=== PATIENT | female | born 1935 | race Caucasian/White ===

== ENCOUNTER 2016-10-26 21:35 | Inpatient (IN) | payer MEDICARE, OTHER ==
[~2016-10-26] VITALS: Ht 162.6 cm; Wt 115.2 kg
[~2016-10-26 21:35] MED LIST: ACET325T9 PO; ACET500T33 PO; ALPR0.25 PO; ANTIFUNGAL POWDER TOP; ASPI-482 PO; ATOR20TA PO; BALS60OI TP; CETI10CA PO; DILT240C2 PO; DILT300C4 PO; DOCU100C28 PO; ESTR2TAB4 PO; FLUT16SP2 NS; FOLI1CAP10 PO; FURO80TA72 PO; GABA-585 PO; HYDR-2758 PO; HYDR-2762 PO; HYDR28.423 TP; IBUP-1027 PO; LEVO5TAB29 PO; LIDO35.4 TP; LIDOCAINE HCL 2% TOP; LOSA100T2 PO; MELA1TAB13 PO; METO-269 PO; METO100T11 PO; METO2.5T PO; METO25TA9 PO; MULT-245 PO; ONDA8TAB12 PO; POLY17PO29 PO; POTA20PA21 PO; PRAS10TA9 PO; RIVA15TA PO; SENN-37 PO; SENN8.6T99 PO; TORS5TAB3 PO; TRAM-48 PO; [UNRECOGNIZED DRUG - CODE] TP; [UNRECOGNIZED DRUG - CODE] TP; testosterone cream TP
[2016-10-26 22:42] LABS: BASO # 0.1 x10^3/uL (0.0-0.2); BASO % 1 % (0-3); EOS % 1 % (0-3); HEMOGLOBIN 13.9 g/dL (12.0-15.5); LYMPH # 1.7 x10^3/uL (1.0-4.8); LYMPH % 18 % (24-48); MEAN CORPUSCULAR HEMOGLOBIN 33 pg (25-35); MEAN CORPUSCULAR HGB CONC 33 g/dL (31-37); MEAN CORPUSCULAR VOLUME 101 fL (79-100); MONO % 10 % (0-9); NEUT % 71 % (31-73); PLATELET COUNT 224 x10^3/uL (140-400); RED BLOOD COUNT 4.18 x10^6/uL (3.50-5.40); RED CELL DISTRIBUTION WIDTH 14.8 % (11.5-14.5); WHITE BLOOD COUNT 9.5 x10^3/uL (4.0-11.0)
[2016-10-26 23:01] LABS: CALCIUM 9.3 mg/dL (8.5-10.1); CREATININE 1.7 mg/dL (0.6-1.0); GFR 28.7; POTASSIUM 4.2 mmol/L (3.5-5.1)
[2016-10-26 23:07] LABS: ALBUMIN 3.4 g/dL (3.4-5.0); DIRECT BILIRUBIN 0.4 mg/dL (0.0-0.2); TOTAL BILIRUBIN 0.8 mg/dL (0.2-1.0); TOTAL PROTEIN 6.8 g/dL (6.4-8.2)
--- NOTE | 2016-10-26 23:18 | RAD ---
INDICATION: intermittant confusion, prior sent COMPARISON: July 02, 2015 TECHNIQUE: Axial CT images obtained through the head without intravenous contrast. One or more of the following individualized dose reduction techniques were utilized for this examination: 1. Automated exposure control; 2. Adjustment of the mA and/or kV according to patient size; 3. Use of iterative reconstruction technique. FINDINGS: No intracranial hemorrhage. No midline shift. Basal cisterns patents. Ventricles and sulci are globally prominent. No acute osseous abnormality. Orbits and paranasal sinuses unremarkable. Scattered foci of low attenuation within the white matter. IMPRESSION: 1. No acute intracranial hemorrhage. 2. Scattered regions of low attenuation within the white matter. Non-specific in nature but frequently secondary to chronic small vessel ischemic disease. 3. Prominence of ventricles and sulci which is frequently secondary to age related volume loss. 4. Repeat demonstration of low-attenuation the right side of the cerebellum which could be from patient's prior infarct. There has also been interval development of low-attenuation in the left side of the cerebellum which could be secondary to a region of gliosis or edema. Possible that this is related to the prior infarct but this region does appear new when compared to prior therefore could be subacute or chronic in nature. If further information is desired MRI can further evaluate Electronically signed by: Hardy Wagner MD (10/26/2016 11:15 PM) [facility]
[2016-10-27] VITALS (7 sets, daily range): BP systolic 102–132; BP diastolic 57–79
[2016-10-27 00:06] LABS: BILIRUBIN,URINE NEGATIVE (NEG); GLUCOSE,URINE NEGATIVE (NEG); NITRITE,URINE POSITIVE (NEG); PROTEIN,URINE NEGATIVE (NEG-TRACE)
[2016-10-27 00:15] LABS: BACTERIA,URINE MANY /HPF (0-FEW); RBC,URINE OCC /HPF (0-2); SQUAMOUS EPITHELIAL CELL,UR MOD /LPF; WBC,URINE 20-40 /HPF (0-4)
[2016-10-27] MEDS ORDERED: ONDANSETRON PF 4 MG/2 ML VIAL. IV PRN (00:30)
--- NOTE | 2016-10-27 03:05 | PHYS DOC ---
Past Medical History Past Medical History: A-Fib, CHF, CVA, Hypertension, TIA Additional Past Medical Histor: LYMPHEDEMA,NEUROTIC DISORDER,PVD,RESTLESS LEG SYNDROME,ALLERGIES,PAIN,SOA Past Surgical History: No Surgical History Additional Past Surgical Histo: ABD SURGERY 20 YEARS AGO, INCISION REOPENED 4YRS AGO. CARDIAC STENT Alcohol Use: None Drug Use: None Adult General Chief Complaint Chief Complaint: WEAKNESS/GENERALIZED HPI HPI 81-year-old female presenting to the emergency department today with intermittent confusion over the past 4 days. She reports having hand tremor is been present about 5 or 6 days. It goes away when she it comes back when she rests her hand. She denies any pain. The staff have reported that she has intermittently seemed different. She denies polyuria dysuria chest pain or shortness of breath. Onset today. Location generalized. Duration intermittent. No alleviating or exacerbating factors. Review of systems is negative for chest pain shortness of breath fevers chills nausea vomiting diaphoresis. All other review of systems is negative unless otherwise noted in history of present illness. ED course: 81-year-old female presenting to the emergency room with intermittent confusion over the past few days. Here the patient was afebrile with a normal heart rate. Pertinent physical exam findings were unremarkable. Blood work and urinalysis obtained. Urinary tract infection present. Patient's creatinine was mildly more elevated than previous. She was given IV fluids and antibiotics and then admitted to our hospital for further evaluation workup and care. Nephrology and infectious disease consultation. Review of Systems Review of Systems SEE ABOVE. Allergies Allergies Allergies Coded Allergies Type Severity Reaction Last Updated Verified Penicillins Allergy Intermediate 08/18/13 Yes Sulfa (Sulfonamide Antibiotics) Allergy Intermediate 05/04/15 Yes adhesive tape Allergy Intermediate 05/08/15 Yes cefadroxil Allergy Intermediate 05/04/15 Yes clopidogrel Allergy Intermediate 05/04/15 Yes codeine Allergy Intermediate 05/04/15 Yes morphine Allergy Intermediate 05/04/15 Yes I S O L A T I O N *CONTACT* Allergy Unknown 05/07/15 Yes Physical Exam Physical Exam SEE ABOVE Constitutional: Well developed, well nourished, no acute distress, non-toxic appearance. [] HENT: Normocephalic, atraumatic, bilateral external ears normal, oropharynx moist, no oral exudates, nose normal. [] Eyes: PERRLA, EOMI, conjunctiva normal, no discharge. [] Neck: Normal range of motion, no tenderness, supple, no stridor. [] Cardiovascular:Heart rate regular rhythm, no murmur [] Lungs & Thorax: Bilateral breath sounds clear to auscultation [] Abdomen: Bowel sounds normal, soft, no tenderness, no masses, no pulsatile masses. [] Skin: Warm, dry, no erythema, no rash. [] Back: No tenderness, no CVA tenderness. [] Extremities: No tenderness, no cyanosis, no clubbing, ROM intact, no edema. [] Neurologic: Alert and oriented X 3, normal motor function, normal sensory function, no focal deficits noted. [] Psychologic: Affect normal, judgement normal, mood normal. [] Current Patient Data Vital Signs Vital Signs Date Time Temp Pulse Resp B/P (MAP) Pulse Ox O2 Delivery O2 Flow Rate FiO2 10/26/16 23:56 100 143/72 (95) 95 Nasal Cannula 2.0 10/26/16 21:40 98.1 20 98.1 Lab Values Laboratory Tests Test 10/26/16 22:30 10/26/16 23:59 White Blood Count 9.5 x10^3/uL (4.0-11.0) Red Blood Count 4.18 x10^6/uL (3.50-5.40) Hemoglobin 13.9 g/dL (12.0-15.5) Hematocrit 42.0 % (36.0-47.0) Mean Corpuscular Volume 101 fL (79-100) H Mean Corpuscular Hemoglobin 33 pg (25-35) Mean Corpuscular Hemoglobin Concent 33 g/dL (31-37) Red Cell Distribution Width 14.8 % (11.5-14.5) H Platelet Count 224 x10^3/uL (140-400) Neutrophils (%) (Auto) 71 % (31-73) Lymphocytes (%) (Auto) 18 % (24-48) L Monocytes (%) (Auto) 10 % (0-9) H Eosinophils (%) (Auto) 1 % (0-3) Basophils (%) (Auto) 1 % (0-3) Neutrophils # (Auto) 6.7 x10^3uL (1.8-7.7) Lymphocytes # (Auto) 1.7 x10^3/uL (1.0-4.8) Monocytes # (Auto) 0.9 x10^3/uL (0.0-1.1) Eosinophils # (Auto) 0.0 x10^3/uL (0.0-0.7) Basophils # (Auto) 0.1 x10^3/uL (0.0-0.2) Sodium Level 145 mmol/L (136-145) Potassium Level 4.2 mmol/L (3.5-5.1) Chloride Level 105 mmol/L (98-107) Carbon Dioxide Level 30 mmol/L (21-32) Anion Gap 10 (6-14) Blood Urea Nitrogen 48 mg/dL (7-20) H Creatinine 1.7 mg/dL (0.6-1.0) H Estimated GFR (Cockcroft-Gault) 28.7 Glucose Level 126 mg/dL (70-99) H Lactic Acid Level 1.3 mmol/L (0.4-2.0) Calcium Level 9.3 mg/dL (8.5-10.1) Total Bilirubin 0.8 mg/dL (0.2-1.0) Direct Bilirubin 0.4 mg/dL (0.0-0.2) H Aspartate Amino Transferase (AST) 25 U/L (15-37) Alanine Aminotransferase (ALT) 32 U/L (14-59) Alkaline Phosphatase 92 U/L (46-116) Troponin I Quantitative 0.037 ng/mL (0.000-0.055) QP-Dwk-R-Type Natriuretic Peptide 2992 pg/mL (0-449) H Total Protein 6.8 g/dL (6.4-8.2) Albumin 3.4 g/dL (3.4-5.0) Lipase 386 U/L (73-393) Urine Collection Type U cath Urine Color Yellow Urine Clarity Clear Urine pH 6.0 Urine Specific [place] 1.015 Urine Protein Negative mg/dL (NEG-TRACE) Urine Glucose (UA) Negative mg/dL (NEG) Urine Ketones (Stick) Negative mg/dL (NEG) Urine Blood Negative (NEG) Urine Nitrite Positive (NEG) Urine Bilirubin Negative (NEG) Urine Urobilinogen Dipstick 1.0 mg/dL (0.2 mg/dL) Urine Leukocyte Esterase Moderate (NEG) Urine RBC Occ /HPF (0-2) Urine WBC 20-40 /HPF (0-4) Urine Squamous Epithelial Cells Mod /LPF Urine Bacteria Many /HPF (0-FEW) Urine Hyaline Casts Few /HPF Urine Mucus Slight /LPF Laboratory Tests 10/26/16 22:30 Laboratory Tests 10/26/16 22:30 EKG EKG [] Radiology/Procedures Radiology/Procedures [] Course & Med Decision Making Course & Med Decision Making Pertinent Labs and Imaging studies reviewed. (See chart for details) [] Dragon Disclaimer Dragon Disclaimer This electronic medical record was generated, in whole or in part, using a voice recognition dictation system. Departure Departure Impression: Primary Impression: Urinary tract infection Additional Impression: Acute kidney injury Disposition: ADMITTED INPATIENT Admitting Physician: Naeem Lopez Condition: IMPROVED Referrals: NOEMÍ MCKEE MD (PCP) Problem Qualifiers VIELKA JAMESON MD Oct 27, 2016 03:05
[2016-10-27] MEDS ORDERED: LIDO MAALOX BENADRYL PO (05:40)
[2016-10-27] MEDS ORDERED: [UNRECOGNIZED DRUG - OTHER] (05:40)
[2016-10-27] MEDS ORDERED: ALBU2.5V14 NEB (05:40)
[2016-10-27] MEDS ORDERED: SPIR25TA3 PO (05:40)
[2016-10-27] MEDS ORDERED: FAMO20TA5 PO (05:40)
[2016-10-27] MEDS ORDERED: magic mouthwash (05:40)
[2016-10-27] MEDS ORDERED: MICO45CR3 TOP (05:40)
[2016-10-27] MEDS ORDERED: CLOB15CR TP (05:40)
[2016-10-27] MEDS ORDERED: IPRA0.2S5 NEB (05:40)
[2016-10-27] MEDS ORDERED: POLY17PO3 PO (05:40)
[2016-10-27] MEDS ORDERED: SENN1TAB99 PO (05:40)
[2016-10-27] MEDS ORDERED: ACET500T68 PO (05:40)
[2016-10-27] MEDS ORDERED: GUAI100L12 PO (05:40)
[2016-10-27] MEDS ORDERED: TRIA15OI TP (05:40)
[2016-10-27] MEDS ORDERED: ONDA8TAB12 PO (05:40)
[2016-10-27] MEDS ORDERED: GABA-586 PO (05:40)
[2016-10-27] MEDS ORDERED: MINE114O TP (05:40)
[2016-10-27] MEDS ORDERED: BUME2TAB PO (05:40)
[2016-10-27] MEDS ORDERED: ASPI-171 PO (05:40)
[2016-10-27] MEDS ORDERED: IBUP-1060 PO (05:40)
[2016-10-27] MEDS ORDERED: MAALOX (05:40)
[2016-10-27] MEDS ORDERED: MAG355OR12 PO (05:40)
[2016-10-27] MEDS ORDERED: DOCU100C28 PO (05:40)
[2016-10-27] MEDS ORDERED: LIDOCAINE (05:40)
[2016-10-27] MEDS ORDERED: GABA-587 PO (05:40)
[2016-10-27] MEDS ORDERED: LISI-338 PO (05:40)
[2016-10-27] MEDS ORDERED: SERT50TA PO (05:40)
--- NOTE | 2016-10-27 06:12 | EKG ---
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
[2016-10-27] MEDS ORDERED: BALSAM PERU TP SCH (08:00)
[2016-10-27] MEDS ORDERED: IPRATROPIUM BROMIDE 0.5 MG/2.5 ML NEBU. NEB PRN (08:00)
[2016-10-27] MEDS ORDERED: MAG HYDROX/ALUMINUM HYD/SIMETH 30 ML ORAL.SUSP PO PRN (08:00)
[2016-10-27] MEDS ORDERED: POLYETHYLENE GLYCOL 3350 17 GM PACKET. PO PRN (08:00)
[2016-10-27] MEDS ORDERED: CASTOR OIL TP SCH (08:00)
--- NOTE | 2016-10-27 08:22 | PDOC1 ---
History and Physical Date of Admission Date of Admission DATE: 10/27/16 TIME: 08:17 Identification/Chief Complaint Chief Complaint confusion Problems: Source Source: Chart review, Patient History of Present Illness History of Present Illness Sister Thursday is an 81-year-old female admit from ER for intermittent confusion , weakness and tremor. Symptoms worse over days, she lives in the mother house, and has mult medical poblems to manage, She wanted to talk repeatedly that she was so confused she had a problem, because she has no pain, she reports 5 siblings, and 2 others are also currently sick, but live out of town. poor PO intake, and new rash on her arms from tape Past Medical History Cardiovascular: AFIB, CAD, CHF, HTN, Hyperlipidemia, Other Pulmonary: No pertinent hx CENTRAL NERVOUS SYSTEM: CVA GI: Constipation, Peptic Ulcer disease Heme/Onc: Cancer Musculoskeletal: Osteoarthritis Infectious disease: No pertinent hx Renal/: Chronic renal insuff, UTI Endocrine: Diabetes Past Surgical History Past Surgical History: Appendectomy, Cataract Removal, Total knee replacement, Tonsillectomy, Hysterectomy, Other Family History Family History: Coronary Artery Disease, Obesity, Stroke (sister) Family History: Parent, Other Social History Smoke: No ALCOHOL: none Drugs: None Current Problem List Problem List Problems Medical Problems: (1) Acute kidney injury Status: Acute (2) Urinary tract infection Status: Acute Problems: Current Medications Current Medications Current Medications Ondansetron HCl (Zofran) 4 mg PRN Q8HRS PRN IV NAUSEA/VOMITING; Start 10/27/16 at 00:30; Stop 10/28/16 at 00:29 Levofloxacin/ Dextrose 100 ml @ 100 mls/hr 1X ONCE IV Last administered on t 00:55; Start 10/27/16 at 01:00; Stop 10/27/16 at 01:59; Status DC Active Scripts Active Reported [lido:maalox:benadryl] PO PRN Q6HRS PRN Bumetanide 2 Mg Tablet 1 Tab PO BID Maalox Maximum Strength Susp (Mag Hydrox/Al Hydrox/Simeth) 355 Ml Oral.susp 355 Ml PO PRN PRN Clobetasol Propionate 15 Gm Cream..g. 1 Kali TP BID Ibuprofen 800 Mg Tablet 800 Mg PO PRN Q8HRS PRN Guaifenesin 100 Mg/5 Ml Liquid 100 Mg PO PRN Q6HRS PRN Spironolactone 25 Mg Tablet 25 Mg PO DAILY Lisinopril 5 Mg Tablet 5 Mg PO HS Polyethylene Glycol 3350 17 Gm Powd.pack 17 Gm PO QODAY Ipratropium [place] 0.2 Mg/1 Ml Solution 1 Vial NEB PRN QID PRN Triamcinolone Acetonide 0.1% Oint (Triamcinolone Acetonide) 15 Gm Oint...g. 1 Kali TP TID MIX WITH EUCERIN DIRECTED BY PHYSICIAN Gabapentin 300 Mg Capsule 300 Mg PO BID Zoloft (Sertraline Hcl) 50 Mg Tablet 50 Mg PO DAILY Absorbase Ointment (Mineral Oil/Petrolatum,White) 114 Gm Oint...g. 114 Gm TP PRN BID PRN Miconazole Nitrate 45 Gm Cream.appl 45 Gm TOP PRN DAILY Famotidine 20 Mg Tablet 20 Mg PO DAILY Albuterol Sulfate Conc Neb Soln (Albuterol Sulfate) 2.5 Mg/0.5 Ml Vial.neb 1 Vial NEB Q6HRS Senna-Docusate Sodium Tablet (Sennosides/Docusate Sodium) 1 Each Tablet 1 Each PO QODAY Zofran Odt (Ondansetron) 8 Mg Tab.rapdis 8 Mg PO PRN Q8HRS PRN Gabapentin 400 Mg Capsule 400 Mg PO HS Acetaminophen 500 Mg Tablet 500 Mg PO Q6HRS Docusate Sodium 100 Mg Capsule 1 Cap PO DAILY Lo-Dose Aspirin EC (Aspirin) 81 Mg Tablet.dr 81 Mg PO DAILY Venelex Ointment (Balsam [place]ang Oil) 60 Gm Oint...g. 60 Gm TP QSHIFT Estrace (Estradiol) 2 Mg Tablet 1 Ad PO JUNE,SEPTEMBER,DEC,DEC Xanax (Alprazolam) 0.25 Mg Tablet 1 Tab PO BID Metoprolol Succinate ( Xl ) (Metoprolol Succinate) 100 Mg Tab.er.24h 100 Mg PO DAILY Flonase (Fluticasone Propionate) 16 Gm [place].susp 1 Sprays NS DAILY Miralax (Polyethylene Glycol 3350) 17 Gm Powd.pack 17 Gm PO PRN DAILY PRN Potassium Chloride Packet (Potassium Chloride) 20 Meq Packet 40 Meq PO QID Allergies Allergies: Coded Allergies: Penicillins (Verified Allergy, Intermediate, 08/18/13) Sulfa (Sulfonamide Antibiotics) (Verified Allergy, Intermediate, 05/04/15) adhesive tape (Verified Allergy, Intermediate, 05/08/15) cefadroxil (Verified Allergy, Intermediate, 05/04/15) clopidogrel (Verified Allergy, Intermediate, 05/04/15) codeine (Verified Allergy, Intermediate, 05/04/15) morphine (Verified Allergy, Intermediate, 05/04/15) I S O L A T I O N *CONTACT* (Verified Allergy, Unknown, 05/07/15) mrsa + ROS Review of System Review of systems is negative for chest pain shortness of breath fevers chills nausea vomiting diaphoresis. All other review of systems is negative unless otherwise noted in history of present illness. General: YES: Fatigue, Appetite, No: Chills, Night Sweats, Malaise, Other PSYCHOLOGICAL ROS: No: Anxiety, Behavioral Disorder, Concentration difficultie , Decreased libido, Depression, Disorientation, Hallucinations, Hostility, Irritablity, Memory difficulties, Mood Swings, Obsessive thoughts, Physical abuse, Sexual abuse, Sleep disturbances, Suicidal ideation, Other Eyes: No Blurry vision, No Decreased vision, No Double vision, No Dry eyes, No Excessive tearing, No Eye Pain, No Itchy Eyes, No Loss of vision, No Photophobia , No Scotomata, No Uses contacts, No Uses glasses, No Other HEENT: No: Heacaches, Visual Changes, Hearing change, Nasal congestion, Nasal discharge, Oral lesions, Sinus pain, Sore Throat, Epistaxis, Sneezing, Snoring, Tinnitus, Vertigo, Vocal changes, Other Respiratory: No: Cough, Hemoptysis, Orthopnea, Pleuritic Pain, Shortness of breath, SOB with excertion, Sputum Changes, Stridor, Tachypnea, Wheezing, Other Cardiovascular: No Chest Pain, No Palpitations, No Orthopnea, No Paroxysmal Noc. Dyspnea, No Edema, No Lt Headedness, No Other Gastrointestinal: No Nausea, No Vomiting, No Abdominal Pain, No Diarrhea, No Constipation, No Melena, No Hematochezia, No Other Genitourinary: YES Frequency, No Dysuria, No Incontinence, No Hematuria, No Retention, No Discharge, No Urgency, No Pain, No Flank Pain, No Other, No , No , No , No , No , No , No Musculoskeletal: No Gait Disturbance, No Joint Pain, No Joint Stiffness, No Joint Swelling, No Muscle Pain, No Muscular Weakness, No Pain In:, No Swelling In:, No Other Neurological: Yes Confusion, Yes Gait Disturbance, No Behavorial Changes, No Bowel/Bladder ControlChng, No Dizziness, No Headaches, No Impaired Coord/balance, No Memory Loss, No Numbness/Tingling, No Seizures, No Speech Problems, No Tremors, No Visual Changes, No Weakness, No Other Skin: No Dry Skin, No Eczema, No Hair Changes, No Lumps, No Mole Changes, No Mottling, No Nail Changes, No Pruritus, No Rash, No Skin Lesion Changes, No Other, No Acne Physical Exam General: Alert, Cooperative, No acute distress, Other (not oriented this AM) HEENT: PERRLA, EOMI, Other (dry OP) Lungs: Clear to auscultation, Normal air movement Heart: no thrills Abdomen: Normal bowel sounds, Soft (obese) Rectal Exam: not examined Extremities: No clubbing, No cyanosis Skin: Other (erythema bilat LE, blanchable, ) Neuro: Normal speech, Sensation intact, Cranial nerves 3-12 NL Psych/Mental Status: Mental status NL, Mood NL Vitals Vitals Vital Signs Date Time Temp Pulse Resp B/P (MAP) Pulse Ox O2 Delivery O2 Flow Rate FiO2 10/27/16 07:00 97.9 83 18 132/79 (96) 99 Nasal Cannula 2.0 97.9 Labs Labs Laboratory Tests Test 10/26/16 22:30 10/26/16 23:59 White Blood Count 9.5 x10^3/uL (4.0-11.0) Red Blood Count 4.18 x10^6/uL (3.50-5.40) Hemoglobin 13.9 g/dL (12.0-15.5) Hematocrit 42.0 % (36.0-47.0) Mean Corpuscular Volume 101 fL (79-100) Mean Corpuscular Hemoglobin 33 pg (25-35) Mean Corpuscular Hemoglobin Concent 33 g/dL (31-37) Red Cell Distribution Width 14.8 % (11.5-14.5) Platelet Count 224 x10^3/uL (140-400) Neutrophils (%) (Auto) 71 % (31-73) Lymphocytes (%) (Auto) 18 % (24-48) Monocytes (%) (Auto) 10 % (0-9) Eosinophils (%) (Auto) 1 % (0-3) Basophils (%) (Auto) 1 % (0-3) Neutrophils # (Auto) 6.7 x10^3uL (1.8-7.7) Lymphocytes # (Auto) 1.7 x10^3/uL (1.0-4.8) Monocytes # (Auto) 0.9 x10^3/uL (0.0-1.1) Eosinophils # (Auto) 0.0 x10^3/uL (0.0-0.7) Basophils # (Auto) 0.1 x10^3/uL (0.0-0.2) Sodium Level 145 mmol/L (136-145) Potassium Level 4.2 mmol/L (3.5-5.1) Chloride Level 105 mmol/L (98-107) Carbon Dioxide Level 30 mmol/L (21-32) Anion Gap 10 (6-14) Blood Urea Nitrogen 48 mg/dL (7-20) Creatinine 1.7 mg/dL (0.6-1.0) Estimated GFR (Cockcroft-Gault) 28.7 Glucose Level 126 mg/dL (70-99) Lactic Acid Level 1.3 mmol/L (0.4-2.0) Calcium Level 9.3 mg/dL (8.5-10.1) Total Bilirubin 0.8 mg/dL (0.2-1.0) Direct Bilirubin 0.4 mg/dL (0.0-0.2) Aspartate Amino Transf (AST/SGOT) 25 U/L (15-37) Alanine Aminotransferase (ALT/SGPT) 32 U/L (14-59) Alkaline Phosphatase 92 U/L (46-116) Troponin I Quantitative 0.037 ng/mL (0.000-0.055) OZ-Lic-N-Type Natriuretic Peptide 2992 pg/mL (0-449) Total Protein 6.8 g/dL (6.4-8.2) Albumin 3.4 g/dL (3.4-5.0) Lipase 386 U/L (73-393) Urine Collection Type U cath Urine Color Yellow Urine Clarity Clear Urine pH 6.0 Urine Specific [place] 1.015 Urine Protein Negative mg/dL (NEG-TRACE) Urine Glucose (UA) Negative mg/dL (NEG) Urine Ketones (Stick) Negative mg/dL (NEG) Urine Blood Negative (NEG) Urine Nitrite Positive (NEG) Urine Bilirubin Negative (NEG) Urine Urobilinogen Dipstick 1.0 mg/dL (0.2 mg/dL) Urine Leukocyte Esterase Moderate (NEG) Urine RBC Occ /HPF (0-2) Urine WBC 20-40 /HPF (0-4) Urine Squamous Epithelial Cells Mod /LPF Urine Bacteria Many /HPF (0-FEW) Urine Hyaline Casts Few /HPF Urine Mucus Slight /LPF Laboratory Tests Test 10/26/16 22:30 10/26/16 23:59 White Blood Count 9.5 x10^3/uL (4.0-11.0) Red Blood Count 4.18 x10^6/uL (3.50-5.40) Hemoglobin 13.9 g/dL (12.0-15.5) Hematocrit 42.0 % (36.0-47.0) Mean Corpuscular Volume 101 fL (79-100) Mean Corpuscular Hemoglobin 33 pg (25-35) Mean Corpuscular Hemoglobin Concent 33 g/dL (31-37) Red Cell Distribution Width 14.8 % (11.5-14.5) Platelet Count 224 x10^3/uL (140-400) Neutrophils (%) (Auto) 71 % (31-73) Lymphocytes (%) (Auto) 18 % (24-48) Monocytes (%) (Auto) 10 % (0-9) Eosinophils (%) (Auto) 1 % (0-3) Basophils (%) (Auto) 1 % (0-3) Neutrophils # (Auto) 6.7 x10^3uL (1.8-7.7) Lymphocytes # (Auto) 1.7 x10^3/uL (1.0-4.8) Monocytes # (Auto) 0.9 x10^3/uL (0.0-1.1) Eosinophils # (Auto) 0.0 x10^3/uL (0.0-0.7) Basophils # (Auto) 0.1 x10^3/uL (0.0-0.2) Sodium Level 145 mmol/L (136-145) Potassium Level 4.2 mmol/L (3.5-5.1) Chloride Level 105 mmol/L (98-107) Carbon Dioxide Level 30 mmol/L (21-32) Anion Gap 10 (6-14) Blood Urea Nitrogen 48 mg/dL (7-20) Creatinine 1.7 mg/dL (0.6-1.0) Estimated GFR (Cockcroft-Gault) 28.7 Glucose Level 126 mg/dL (70-99) Lactic Acid Level 1.3 mmol/L (0.4-2.0) Calcium Level 9.3 mg/dL (8.5-10.1) Total Bilirubin 0.8 mg/dL (0.2-1.0) Direct Bilirubin 0.4 mg/dL (0.0-0.2) Aspartate Amino Transf (AST/SGOT) 25 U/L (15-37) Alanine Aminotransferase (ALT/SGPT) 32 U/L (14-59) Alkaline Phosphatase 92 U/L (46-116) Troponin I Quantitative 0.037 ng/mL (0.000-0.055) CC-Rzf-R-Type Natriuretic Peptide 2992 pg/mL (0-449) Total Protein 6.8 g/dL (6.4-8.2) Albumin 3.4 g/dL (3.4-5.0) Lipase 386 U/L (73-393) Urine Collection Type U cath Urine Color Yellow Urine Clarity Clear Urine pH 6.0 Urine Specific [place] 1.015 Urine Protein Negative mg/dL (NEG-TRACE) Urine Glucose (UA) Negative mg/dL (NEG) Urine Ketones (Stick) Negative mg/dL (NEG) Urine Blood Negative (NEG) Urine Nitrite Positive (NEG) Urine Bilirubin Negative (NEG) Urine Urobilinogen Dipstick 1.0 mg/dL (0.2 mg/dL) Urine Leukocyte Esterase Moderate (NEG) Urine RBC Occ /HPF (0-2) Urine WBC 20-40 /HPF (0-4) Urine Squamous Epithelial Cells Mod /LPF Urine Bacteria Many /HPF (0-FEW) Urine Hyaline Casts Few /HPF Urine Mucus Slight /LPF VTE Prophylaxis Ordered VTE Prophylaxis Devices: No VTE Pharmacological Prophylaxi: Yes Assessment/Plan Assessment/Plan metbolic encephalopathy UTI acute renal failure, vasomotor nephropathy morbid obesity, BMI 43 htn, likely chronic diastolic CHF afib, chronic hypoxic respiratory failure HX CVA, CT head possibly shows new area of infarct to cerebellum, consult Neuro admit JABIER MARTINEZ MD Oct 27, 2016 08:22
[2016-10-27] MEDS ORDERED: ONDANSETRON ODT 4 MG TAB.RAPDIS. PO PRN (08:30)
--- NOTE | 2016-10-27 08:31 | RAD ---
Portable chest, 10/26/2016: History: Weakness and fatigue Comparison is made to a study from 05/14/2015. The heart is enlarged. The pulmonary vascularity is normal. There is minimal linear atelectasis and/or scarring in the perihilar regions. No pulmonary consolidation is seen. There is no evidence of pleural fluid. There is a mild thoracic scoliosis with mild scattered spurring. IMPRESSION: 1. Mild cardiomegaly. 2. Minimal bilateral linear atelectasis and/or scarring.
[2016-10-27] MEDS ORDERED: SENNOSIDES/DOCUSATE 8.6/50MG TABLET. PO SCH (09:00)
[2016-10-27] MEDS ORDERED: BUMETANIDE 1 MG TABLET. PO SCH (09:00)
[2016-10-27] MEDS ORDERED: POLYETHYLENE GLYCOL 3350 17 GM PACKET. PO SCH (09:00)
[2016-10-27] MEDS ORDERED: MICONAZOLE NITRATE 2% TOPICAL CREAM 28GM TUBE. TP PRN ×3 (09:00→13:48)
[2016-10-27] MEDS ORDERED: CLOBETASOL EMOLLIENT 0.05% TOPICAL CREAM 15GM TUBE. TP SCH (09:00)
[2016-10-27] MEDS: FAMOTIDINE 20 MG TABLET. PO SCH (09:16)
[2016-10-27] MEDS: SPIRONOLACTONE 25 MG TABLET PO SCH (09:16)
[2016-10-27] MEDS: DOCUSATE SODIUM 100 MG CAPSULE. PO SCH (09:16)
[2016-10-27] MEDS: GABAPENTIN 300 MG CAPSULE. PO SCH ×2 (09:16→13:56)
[2016-10-27] MEDS: ALPRAZolam 0.25 MG TABLET PO SCH ×2 (09:16→20:42)
[2016-10-27] MEDS: SERTRALINE 50 MG TABLET. PO SCH (09:16)
[2016-10-27] MEDS: ASPIRIN ENTERIC COATED 81 MG TABLET.DR. PO SCH (09:17)
[2016-10-27] MEDS: METOPROLOL SUCC 24HR ER 100 MG TAB.ER.24H. PO SCH (09:17)
[2016-10-27] MEDS: IV NORMAL SALINE 1000ML BAG 1,000 ML IV SCH ×2 (09:18→18:15)
[2016-10-27] MEDS: FLUTICASONE 50MCG/NASAL SPRAY 16GM BOTTLE. NS SCH (09:19)
[2016-10-27] MEDS: TRIAMCINOLONE ACETONIDE 0.1% TOPICAL OINTMENT 15GM TUBE. TP SCH ×3 (09:24→20:42)
[2016-10-27] MEDS ORDERED: MINERAL OIL/PETROLATUM TOPICAL CREAM 113GM JAR. TP PRN ×2 (09:45→13:49)
--- NOTE | 2016-10-27 09:56 | PDOC2 ---
IM Consult Reason for consult UTI Referring physician Dr. Barillas Date of Admission DATE: 10/27/16 TIME: 09:49 Chief Complaint Chief Complaint Confusion HPI: Sister Thursday is an 81-year-old female admit from ER for intermittent confusion, weakness and tremor. Symptoms worse over days, she lives in the mother house, and has mult medical poblems to manage, She is better today and complained mainly about urinary hesitation and her lymphedema. States she loses track of her thoughts because of her stroke and also gets SOA with ambulation. She has had some chills but is hungry and had clears today Problems: Past Medical History Cardiovascular: AFIB, CAD, CHF, HTN, Hyperlipidemia, Other Pulmonary: No pertinent hx CENTRAL NERVOUS SYSTEM: CVA GI: Constipation, Peptic Ulcer disease Heme/Onc: Cancer Musculoskeletal: Osteoarthritis Infectious disease: No pertinent hx Renal/: Chronic renal insuff, UTI Endocrine: Diabetes Past Surgical History Past Surgical History: Appendectomy, Cataract Removal, Total knee replacement, Tonsillectomy, Hysterectomy Past Family History Family History: Coronary Artery Disease, Obesity, Stroke (sister) Review of Symptoms Review of Symptoms General ROS: positive for - chills ENT ROS: negative Allergy and Immunology ROS: negative Hematology and Lymphatic: negative Endocrine ROS: negative Respiratory ROS: no cold, cough, dyspnea. Cardiovascular ROS: no chest pain or dyspnea on exertion Gastrointestinal ROS: no abdominal pain, change in bowel habits, or black or bloody stools Genito-Urinary ROS: + retention Musculoskeletal ROS: Lymphedema Neurological ROS: trouble with word finding Dermatological ROS: no rash Medications Current Medications Acetaminophen (Tylenol) 500 mg Q6HRS PO ; Start 10/27/16 at 12:00 Al Hydroxide/Mg Hydroxide (Mylanta Plus Xs) 355 ml PRN Q8HRS PRN PO STOMACH CRAMPING; Start 10/27/16 at 08:00 Albuterol Sulfate (Ventolin Neb Soln) 2.5 mg Q6HRS NEB ; Start 10/27/16 at 12:00 Alprazolam (Xanax) 0.25 mg BID PO Last administered on 10/27/16 09:16; Start 10/27/16 at 09:00 Aspirin (Ecotrin) 81 mg DAILY PO Last administered on 10/27/16 09:17; Start at 09:00 Bumetanide (Bumex) 2 mg BID PO Last administered on 10/27/16 09:16; Start 02/03 at 09:00 Clobetasol Propionate (Temovate) 1 donn BID TP Last administered on 10/27/16 09 :24; Start 10/27/16 at 09:00 Docusate Sodium (Colace) 100 mg DAILY PO Last administered on 10/27/16 09:16; Start 10/27/16 at 09:00 Famotidine (Pepcid) 20 mg DAILY PO Last administered on 10/27/16 09:16; Start 10/27/16 at 09:00 Fluticasone Propionate (Flonase) 1 spray DAILY NS Last administered on 09:19; Start 10/27/16 at 09:00 Gabapentin (Neurontin) 300 mg BID92 PO Last administered on 10/27/16 09:16; Start 10/27/16 at 09:00 Gabapentin (Neurontin) 400 mg QHS PO ; Start 10/27/16 at 21:00 Guaifenesin (Robitussin) 100 mg PRN Q6HRS PRN PO COUGH; Start 10/27/16 at 08:00 Ipratropium [place] (Atrovent) 0.4 mg PRN QID PRN NEB shortness of breath; Start 10/27/16 at 08:00 Levofloxacin/ Dextrose 100 ml @ 100 mls/hr 1X ONCE IV Last administered on 00:55; Start 10/27/16 at 01:00; Stop 10/27/16 at 01:59; Status DC Lisinopril (Prinivil) 5 mg HS PO ; Start 10/27/16 at 21:00 Metoprolol Succinate (Toprol Xl) 100 mg DAILY PO Last administered on 09:17; Start 10/27/16 at 09:00 Miconazole Nitrate (Monistat-Derm) 1 donn DAILY PRN TP Rash; Start 10/27/16 at 09:00 Non-Formulary Medication 1 vial Q6HRS NEB ; Start 10/27/16 at 12:00; Stop at 12:00; Status DC Non-Formulary Medication 60 gm QSHIFT TP ; Start 10/27/16 at 08:00; Status UNV Non-Formulary Medication 114 gm PRN BID PRN TP DRY SKIN / SCALING; Start at 08:00; Status UNV Ondansetron HCl (Zofran Odt) 8 mg PRN Q8HRS PRN PO NAUSEA/VOMITING; Start 10/27 at 08:30 Ondansetron HCl (Zofran) 4 mg PRN Q8HRS PRN IV NAUSEA/VOMITING; Start 10/27/16 at 00:30; Stop 10/28/16 at 00:29 Polyethylene Glycol (miraLAX PACKET) 17 gm PRN DAILY PRN PO CONSTIPATION; Start 10/27/16 at 08:00 Polyethylene Glycol (miraLAX PACKET) 17 gm QODAY PO Last administered on 09:15; Start 10/27/16 at 09:00 Senna/Docusate Sodium (Senna Plus) 1 tab QODAY PO Last administered on 09:16; Start 10/27/16 at 09:00 Sertraline HCl (Zoloft) 50 mg DAILY PO Last administered on 10/27/16 09:16; Start 10/27/16 at 09:00 Sodium Chloride 1,000 ml @ 100 mls/hr Q10H IV Last administered on 10/27/16 09:18; Start 10/27/16 at 08:15 Spironolactone (Aldactone) 25 mg DAILY PO Last administered on 10/27/16 09:16 ; Start 10/27/16 at 09:00 Triamcinolone Acetonide (Kenalog) 1 donn TID TP Last administered on 10/27/16 09:24; Start 10/27/16 at 09:00 Allergy Allergies Coded Allergies Type Severity Reaction Last Updated Verified Penicillins Allergy Intermediate 08/18/13 Yes Sulfa (Sulfonamide Antibiotics) Allergy Intermediate 05/04/15 Yes adhesive tape Allergy Intermediate 05/08/15 Yes cefadroxil Allergy Intermediate 05/04/15 Yes clopidogrel Allergy Intermediate 05/04/15 Yes codeine Allergy Intermediate 05/04/15 Yes morphine Allergy Intermediate 05/04/15 Yes I S O L A T I O N *CONTACT* Allergy Unknown 05/07/15 Yes Physical Exam Physical Exam General appearance - alert,well appearing, and in no distress and oriented to person, place, and time Mental Status - alert, oriented to person, place, and time, affect appropriate to mood Head - normal Chest - clear to auscultation, no wheezes, rales or rhonchi, symmetric air entry Heart - S1 and S2 normal Abdomen - soft, nontender, nondistended, no masses or organomegaly Neurological - alert and oriented Musculoskeletal - no muscular tenderness noted Extremities - no pedal edema Skin - warm and dry Labs Laboratory Tests Test 10/26/16 22:30 10/26/16 23:59 White Blood Count 9.5 x10^3/uL (4.0-11.0) Red Blood Count 4.18 x10^6/uL (3.50-5.40) Hemoglobin 13.9 g/dL (12.0-15.5) Hematocrit 42.0 % (36.0-47.0) Mean Corpuscular Volume 101 fL (79-100) Mean Corpuscular Hemoglobin 33 pg (25-35) Mean Corpuscular Hemoglobin Concent 33 g/dL (31-37) Red Cell Distribution Width 14.8 % (11.5-14.5) Platelet Count 224 x10^3/uL (140-400) Neutrophils (%) (Auto) 71 % (31-73) Lymphocytes (%) (Auto) 18 % (24-48) Monocytes (%) (Auto) 10 % (0-9) Eosinophils (%) (Auto) 1 % (0-3) Basophils (%) (Auto) 1 % (0-3) Neutrophils # (Auto) 6.7 x10^3uL (1.8-7.7) Lymphocytes # (Auto) 1.7 x10^3/uL (1.0-4.8) Monocytes # (Auto) 0.9 x10^3/uL (0.0-1.1) Eosinophils # (Auto) 0.0 x10^3/uL (0.0-0.7) Basophils # (Auto) 0.1 x10^3/uL (0.0-0.2) Sodium Level 145 mmol/L (136-145) Potassium Level 4.2 mmol/L (3.5-5.1) Chloride Level 105 mmol/L (98-107) Carbon Dioxide Level 30 mmol/L (21-32) Anion Gap 10 (6-14) Blood Urea Nitrogen 48 mg/dL (7-20) Creatinine 1.7 mg/dL (0.6-1.0) Estimated GFR (Cockcroft-Gault) 28.7 Glucose Level 126 mg/dL (70-99) Lactic Acid Level 1.3 mmol/L (0.4-2.0) Calcium Level 9.3 mg/dL (8.5-10.1) Total Bilirubin 0.8 mg/dL (0.2-1.0) Direct Bilirubin 0.4 mg/dL (0.0-0.2) Aspartate Amino Transf (AST/SGOT) 25 U/L (15-37) Alanine Aminotransferase (ALT/SGPT) 32 U/L (14-59) Alkaline Phosphatase 92 U/L (46-116) Troponin I Quantitative 0.037 ng/mL (0.000-0.055) NX-Fgy-O-Type Natriuretic Peptide 2992 pg/mL (0-449) Total Protein 6.8 g/dL (6.4-8.2) Albumin 3.4 g/dL (3.4-5.0) Lipase 386 U/L (73-393) Urine Collection Type U cath Urine Color Yellow Urine Clarity Clear Urine pH 6.0 Urine Specific [place] 1.015 Urine Protein Negative mg/dL (NEG-TRACE) Urine Glucose (UA) Negative mg/dL (NEG) Urine Ketones (Stick) Negative mg/dL (NEG) Urine Blood Negative (NEG) Urine Nitrite Positive (NEG) Urine Bilirubin Negative (NEG) Urine Urobilinogen Dipstick 1.0 mg/dL (0.2 mg/dL) Urine Leukocyte Esterase Moderate (NEG) Urine RBC Occ /HPF (0-2) Urine WBC 20-40 /HPF (0-4) Urine Squamous Epithelial Cells Mod /LPF Urine Bacteria Many /HPF (0-FEW) Urine Hyaline Casts Few /HPF Urine Mucus Slight /LPF Laboratory Tests Test 10/26/16 22:30 10/26/16 23:59 White Blood Count 9.5 x10^3/uL (4.0-11.0) Red Blood Count 4.18 x10^6/uL (3.50-5.40) Hemoglobin 13.9 g/dL (12.0-15.5) Hematocrit 42.0 % (36.0-47.0) Mean Corpuscular Volume 101 fL (79-100) Mean Corpuscular Hemoglobin 33 pg (25-35) Mean Corpuscular Hemoglobin Concent 33 g/dL (31-37) Red Cell Distribution Width 14.8 % (11.5-14.5) Platelet Count 224 x10^3/uL (140-400) Neutrophils (%) (Auto) 71 % (31-73) Lymphocytes (%) (Auto) 18 % (24-48) Monocytes (%) (Auto) 10 % (0-9) Eosinophils (%) (Auto) 1 % (0-3) Basophils (%) (Auto) 1 % (0-3) Neutrophils # (Auto) 6.7 x10^3uL (1.8-7.7) Lymphocytes # (Auto) 1.7 x10^3/uL (1.0-4.8) Monocytes # (Auto) 0.9 x10^3/uL (0.0-1.1) Eosinophils # (Auto) 0.0 x10^3/uL (0.0-0.7) Basophils # (Auto) 0.1 x10^3/uL (0.0-0.2) Sodium Level 145 mmol/L (136-145) Potassium Level 4.2 mmol/L (3.5-5.1) Chloride Level 105 mmol/L (98-107) Carbon Dioxide Level 30 mmol/L (21-32) Anion Gap 10 (6-14) Blood Urea Nitrogen 48 mg/dL (7-20) Creatinine 1.7 mg/dL (0.6-1.0) Estimated GFR (Cockcroft-Gault) 28.7 Glucose Level 126 mg/dL (70-99) Lactic Acid Level 1.3 mmol/L (0.4-2.0) Calcium Level 9.3 mg/dL (8.5-10.1) Total Bilirubin 0.8 mg/dL (0.2-1.0) Direct Bilirubin 0.4 mg/dL (0.0-0.2) Aspartate Amino Transf (AST/SGOT) 25 U/L (15-37) Alanine Aminotransferase (ALT/SGPT) 32 U/L (14-59) Alkaline Phosphatase 92 U/L (46-116) Troponin I Quantitative 0.037 ng/mL (0.000-0.055) KA-Cdj-I-Type Natriuretic Peptide 2992 pg/mL (0-449) Total Protein 6.8 g/dL (6.4-8.2) Albumin 3.4 g/dL (3.4-5.0) Lipase 386 U/L (73-393) Urine Collection Type U cath Urine Color Yellow Urine Clarity Clear Urine pH 6.0 Urine Specific [place] 1.015 Urine Protein Negative mg/dL (NEG-TRACE) Urine Glucose (UA) Negative mg/dL (NEG) Urine Ketones (Stick) Negative mg/dL (NEG) Urine Blood Negative (NEG) Urine Nitrite Positive (NEG) Urine Bilirubin Negative (NEG) Urine Urobilinogen Dipstick 1.0 mg/dL (0.2 mg/dL) Urine Leukocyte Esterase Moderate (NEG) Urine RBC Occ /HPF (0-2) Urine WBC 20-40 /HPF (0-4) Urine Squamous Epithelial Cells Mod /LPF Urine Bacteria Many /HPF (0-FEW) Urine Hyaline Casts Few /HPF Urine Mucus Slight /LPF Vitals Vital Signs Date Time Temp Pulse Resp B/P (MAP) Pulse Ox O2 Delivery O2 Flow Rate FiO2 10/27/16 09:17 83 132/79 10/27/16 07:00 97.9 18 99 Nasal Cannula 2.0 97.9 Assessment Assessment UTI - POA PCN/Sulfa allergy ? reaction H/o CVA - ? new finding on CT head KIRTI Chronic Lymphedema Plan Plan Clinically improving Cont levofloxacin for now lymphedema eval Neuro consulted F/u labs and cult D/w ERICKA Costa MD Oct 27, 2016 09:55
[2016-10-27] MEDS ORDERED: NON FORMULARY ITEM (Albuterol Sulfate (Albuterol Sulfate Conc Neb Soln) 1 VIAL) NEB SCH (12:00)
[2016-10-27] MEDS: ACETAMINOPHEN 500 MG TABLET PO SCH ×2 (12:00→18:19)
--- NOTE | 2016-10-27 12:13 | PDOC2 ---
CONSULT Date of Consult Date of Consult DATE: 10/27/16 TIME: 12:08 Reason for Consult Reason for Consult: KIRTI Referring Physician Referring Physician: JEFF Identification/Chief Complaint Chief Complaint CONFUSION AND WEAK Problems: Source Source: Chart review History of Present Illness Reason for Visit: THIS IS AN 81 YR OLD ADMITTED WITH CONFUSION AND WEAKNESS. SHE IS NOTED TO HAVE AN UTI. SHE HAS A CR OF 1.7-1.9. SHE HAS CKD STAGE 3 WITH CR OF 1.1-1.4 AT BASELINE. SHE IS AWAKE AND ALERT BUT CONFUSED SOME. LABS AND HX REVIEWED Past Medical History Cardiovascular: AFIB, CAD, CHF, HTN, Hyperlipidemia, Other Pulmonary: No pertinent hx CENTRAL NERVOUS SYSTEM: CVA GI: Constipation, Peptic Ulcer disease Heme/Onc: Cancer Musculoskeletal: Osteoarthritis Infectious disease: No pertinent hx Renal/: Chronic renal insuff, UTI Endocrine: Diabetes Past Surgical History Past Surgical History: Appendectomy, Cataract Removal, Total knee replacement, Tonsillectomy, Hysterectomy Family History Family History: Coronary Artery Disease, Obesity, Stroke (sister) Social History Social History: Parent, Other No ALCOHOL: none Drugs: None Lives: Assisted Domestic Violence: Neg Current Problem List Problem List Problems Medical Problems: (1) Acute kidney injury Status: Acute (2) Urinary tract infection Status: Acute Current Medications Current Medications Current Medications Ondansetron HCl (Zofran) 4 mg PRN Q8HRS PRN IV NAUSEA/VOMITING; Start 10/27/16 at 00:30; Stop 10/28/16 at 00:29 Levofloxacin/ Dextrose 100 ml @ 100 mls/hr 1X ONCE IV Last administered on 00:55; Start 10/27/16 at 01:00; Stop 10/27/16 at 01:59; Status DC Acetaminophen (Tylenol) 500 mg Q6HRS PO Last administered on 10/27/16 12:00; Start 10/27/16 at 12:00 Alprazolam (Xanax) 0.25 mg BID PO Last administered on 10/27/16 09:16; Start 10/27/16 at 09:00 Aspirin (Ecotrin) 81 mg DAILY PO Last administered on 10/27/16 09:17; Start at 09:00 Docusate Sodium (Colace) 100 mg DAILY PO Last administered on 10/27/16 09:16; Start 10/27/16 at 09:00 Famotidine (Pepcid) 20 mg DAILY PO Last administered on 10/27/16 09:16; Start 10/27/16 at 09:00 Fluticasone Propionate (Flonase) 1 spray DAILY NS Last administered on 09:19; Start 10/27/16 at 09:00 Guaifenesin (Robitussin) 100 mg PRN Q6HRS PRN PO COUGH; Start 10/27/16 at 08:00 Ipratropium [place] (Atrovent) 0.4 mg PRN QID PRN NEB shortness of breath; Start 10/27/16 at 08:00 Lisinopril (Prinivil) 5 mg HS PO ; Start 10/27/16 at 21:00 Al Hydroxide/Mg Hydroxide (Mylanta Plus Xs) 355 ml PRN Q8HRS PRN PO STOMACH CRAMPING; Start 10/27/16 at 08:00 Metoprolol Succinate (Toprol Xl) 100 mg DAILY PO Last administered on 09:17; Start 10/27/16 at 09:00 Polyethylene Glycol (miraLAX PACKET) 17 gm QODAY PO Last administered on 09:15; Start 10/27/16 at 09:00 Polyethylene Glycol (miraLAX PACKET) 17 gm PRN DAILY PRN PO CONSTIPATION; Start 10/27/16 at 08:00 Senna/Docusate Sodium (Senna Plus) 1 tab QODAY PO Last administered on 09:16; Start 10/27/16 at 09:00 Sertraline HCl (Zoloft) 50 mg DAILY PO Last administered on 10/27/16 09:16; Start 10/27/16 at 09:00 Spironolactone (Aldactone) 25 mg DAILY PO Last administered on 10/27/16 09:16 ; Start 10/27/16 at 09:00 Triamcinolone Acetonide (Kenalog) 1 kali TID TP Last administered on 10/27/16 09:24; Start 10/27/16 at 09:00 Non-Formulary Medication 1 vial Q6HRS NEB ; Start 10/27/16 at 12:00; Stop at 12:00; Status DC Non-Formulary Medication 60 gm QSHIFT TP ; Start 10/27/16 at 08:00; Stop at 09:49; Status DC Bumetanide (Bumex) 2 mg BID PO Last administered on 10/27/16 09:16; Start 02/03 at 09:00 Clobetasol Propionate (Temovate) 1 kali BID TP Last administered on 10/27/16 09 :24; Start 10/27/16 at 09:00 Gabapentin (Neurontin) 300 mg BID92 PO Last administered on 10/27/16 09:16; Start 10/27/16 at 09:00 Gabapentin (Neurontin) 400 mg QHS PO ; Start 10/27/16 at 21:00 Miconazole Nitrate (Monistat-Derm) 1 kali DAILY PRN TP Rash; Start 10/27/16 at 09:00; Stop 10/27/16 at 09:48; Status DC Multi-Ingred Cream/Lotion/Oil/ Oint (Hydrocerin) 1 kali PRN BID PRN TP FOR DRY SKIN Last administered on 10/27/16 12:01; Start 10/27/16 at 09:45 Ondansetron HCl (Zofran Odt) 8 mg PRN Q8HRS PRN PO NAUSEA/VOMITING; Start 10/27 at 08:30 Sodium Chloride 1,000 ml @ 100 mls/hr Q10H IV Last administered on 10/27/16 09:18; Start 10/27/16 at 08:15 Albuterol Sulfate (Ventolin Neb Soln) 2.5 mg Q6HRS NEB ; Start 10/27/16 at 12:00 Miconazole Nitrate (Monistat-Derm) 1 kali PRN DAILY PRN TP Rash; Start 10/27/16 at 10:00 Levofloxacin (Levaquin) 500 mg DAILY06 PO Last administered on 10/27/16 12:00 ; Start 10/27/16 at 10:00 Active Scripts Active Reported [lido:maalox:benadryl] PO PRN Q6HRS PRN Bumetanide 2 Mg Tablet 1 Tab PO BID Maalox Maximum Strength Susp (Mag Hydrox/Al Hydrox/Simeth) 355 Ml Oral.susp 355 Ml PO PRN PRN Clobetasol Propionate 15 Gm Cream..g. 1 Kali TP BID Ibuprofen 800 Mg Tablet 800 Mg PO PRN Q8HRS PRN Guaifenesin 100 Mg/5 Ml Liquid 100 Mg PO PRN Q6HRS PRN Spironolactone 25 Mg Tablet 25 Mg PO DAILY Lisinopril 5 Mg Tablet 5 Mg PO HS Polyethylene Glycol 3350 17 Gm Powd.pack 17 Gm PO QODAY Ipratropium [place] 0.2 Mg/1 Ml Solution 1 Vial NEB PRN QID PRN Triamcinolone Acetonide 0.1% Oint (Triamcinolone Acetonide) 15 Gm Oint...g. 1 Kali TP TID MIX WITH EUCERIN DIRECTED BY PHYSICIAN Gabapentin 300 Mg Capsule 300 Mg PO BID Zoloft (Sertraline Hcl) 50 Mg Tablet 50 Mg PO DAILY Absorbase Ointment (Mineral Oil/Petrolatum,White) 114 Gm Oint...g. 114 Gm TP PRN BID PRN Miconazole Nitrate 45 Gm Cream.appl 45 Gm TOP PRN DAILY Famotidine 20 Mg Tablet 20 Mg PO DAILY Albuterol Sulfate Conc Neb Soln (Albuterol Sulfate) 2.5 Mg/0.5 Ml Vial.neb 1 Vial NEB Q6HRS Senna-Docusate Sodium Tablet (Sennosides/Docusate Sodium) 1 Each Tablet 1 Each PO QODAY Zofran Odt (Ondansetron) 8 Mg Tab.rapdis 8 Mg PO PRN Q8HRS PRN Gabapentin 400 Mg Capsule 400 Mg PO HS Acetaminophen 500 Mg Tablet 500 Mg PO Q6HRS Docusate Sodium 100 Mg Capsule 1 Cap PO DAILY Lo-Dose Aspirin EC (Aspirin) 81 Mg Tablet.dr 81 Mg PO DAILY Venelex Ointment (Balsam [place] Oil) 60 Gm Oint...g. 60 Gm TP QSHIFT Estrace (Estradiol) 2 Mg Tablet 1 Ad PO JUNE,SEPTEMBER,DEC,DEC Xanax (Alprazolam) 0.25 Mg Tablet 1 Tab PO BID Metoprolol Succinate ( Xl ) (Metoprolol Succinate) 100 Mg Tab.er.24h 100 Mg PO DAILY Flonase (Fluticasone Propionate) 16 Gm [place].susp 1 Sprays NS DAILY Miralax (Polyethylene Glycol 3350) 17 Gm Powd.pack 17 Gm PO PRN DAILY PRN Potassium Chloride Packet (Potassium Chloride) 20 Meq Packet 40 Meq PO QID Allergies Allergies: Coded Allergies: Penicillins (Verified Allergy, Intermediate, 08/18/13) Sulfa (Sulfonamide Antibiotics) (Verified Allergy, Intermediate, 05/04/15) adhesive tape (Verified Allergy, Intermediate, 05/08/15) cefadroxil (Verified Allergy, Intermediate, 05/04/15) clopidogrel (Verified Allergy, Intermediate, 05/04/15) codeine (Verified Allergy, Intermediate, 05/04/15) morphine (Verified Allergy, Intermediate, 05/04/15) I S O L A T I O N *CONTACT* (Verified Allergy, Unknown, 05/07/15) mrsa + ROS Review of System NOT RELIABLE Physical Exam General: Alert, Cooperative HEENT: Atraumatic, PERRLA, Other (DRY MUCOSA) Lungs: Clear to auscultation Heart: Regular rate, Gallops Abdomen: Normal bowel sounds, No tenderness Extremities: No clubbing Skin: No rashes Neuro: Other (NO ASYMMETRY) Psych/Mental Status: Mental status NL MUSCULOSKELETAL: No deformity, No swelling Vitals VITALS Vital Signs Date Time Temp Pulse Resp B/P (MAP) Pulse Ox O2 Delivery O2 Flow Rate FiO2 10/27/16 10:44 98.0 119 16 117/79 (92) 96 Room Air 98.0 10/27/16 07:50 2.0 Labs Labs Laboratory Tests Test 10/26/16 22:30 10/26/16 23:59 White Blood Count 9.5 x10^3/uL (4.0-11.0) Red Blood Count 4.18 x10^6/uL (3.50-5.40) Hemoglobin 13.9 g/dL (12.0-15.5) Hematocrit 42.0 % (36.0-47.0) Mean Corpuscular Volume 101 fL (79-100) Mean Corpuscular Hemoglobin 33 pg (25-35) Mean Corpuscular Hemoglobin Concent 33 g/dL (31-37) Red Cell Distribution Width 14.8 % (11.5-14.5) Platelet Count 224 x10^3/uL (140-400) Neutrophils (%) (Auto) 71 % (31-73) Lymphocytes (%) (Auto) 18 % (24-48) Monocytes (%) (Auto) 10 % (0-9) Eosinophils (%) (Auto) 1 % (0-3) Basophils (%) (Auto) 1 % (0-3) Neutrophils # (Auto) 6.7 x10^3uL (1.8-7.7) Lymphocytes # (Auto) 1.7 x10^3/uL (1.0-4.8) Monocytes # (Auto) 0.9 x10^3/uL (0.0-1.1) Eosinophils # (Auto) 0.0 x10^3/uL (0.0-0.7) Basophils # (Auto) 0.1 x10^3/uL (0.0-0.2) Sodium Level 145 mmol/L (136-145) Potassium Level 4.2 mmol/L (3.5-5.1) Chloride Level 105 mmol/L (98-107) Carbon Dioxide Level 30 mmol/L (21-32) Anion Gap 10 (6-14) Blood Urea Nitrogen 48 mg/dL (7-20) Creatinine 1.7 mg/dL (0.6-1.0) Estimated GFR (Cockcroft-Gault) 28.7 Glucose Level 126 mg/dL (70-99) Lactic Acid Level 1.3 mmol/L (0.4-2.0) Calcium Level 9.3 mg/dL (8.5-10.1) Total Bilirubin 0.8 mg/dL (0.2-1.0) Direct Bilirubin 0.4 mg/dL (0.0-0.2) Aspartate Amino Transf (AST/SGOT) 25 U/L (15-37) Alanine Aminotransferase (ALT/SGPT) 32 U/L (14-59) Alkaline Phosphatase 92 U/L (46-116) Troponin I Quantitative 0.037 ng/mL (0.000-0.055) HN-Mnb-T-Type Natriuretic Peptide 2992 pg/mL (0-449) Total Protein 6.8 g/dL (6.4-8.2) Albumin 3.4 g/dL (3.4-5.0) Lipase 386 U/L (73-393) Urine Collection Type U cath Urine Color Yellow Urine Clarity Clear Urine pH 6.0 Urine Specific [place] 1.015 Urine Protein Negative mg/dL (NEG-TRACE) Urine Glucose (UA) Negative mg/dL (NEG) Urine Ketones (Stick) Negative mg/dL (NEG) Urine Blood Negative (NEG) Urine Nitrite Positive (NEG) Urine Bilirubin Negative (NEG) Urine Urobilinogen Dipstick 1.0 mg/dL (0.2 mg/dL) Urine Leukocyte Esterase Moderate (NEG) Urine RBC Occ /HPF (0-2) Urine WBC 20-40 /HPF (0-4) Urine Squamous Epithelial Cells Mod /LPF Urine Bacteria Many /HPF (0-FEW) Urine Hyaline Casts Few /HPF Urine Mucus Slight /LPF Laboratory Tests Test 10/26/16 22:30 10/26/16 23:59 White Blood Count 9.5 x10^3/uL (4.0-11.0) Red Blood Count 4.18 x10^6/uL (3.50-5.40) Hemoglobin 13.9 g/dL (12.0-15.5) Hematocrit 42.0 % (36.0-47.0) Mean Corpuscular Volume 101 fL (79-100) Mean Corpuscular Hemoglobin 33 pg (25-35) Mean Corpuscular Hemoglobin Concent 33 g/dL (31-37) Red Cell Distribution Width 14.8 % (11.5-14.5) Platelet Count 224 x10^3/uL (140-400) Neutrophils (%) (Auto) 71 % (31-73) Lymphocytes (%) (Auto) 18 % (24-48) Monocytes (%) (Auto) 10 % (0-9) Eosinophils (%) (Auto) 1 % (0-3) Basophils (%) (Auto) 1 % (0-3) Neutrophils # (Auto) 6.7 x10^3uL (1.8-7.7) Lymphocytes # (Auto) 1.7 x10^3/uL (1.0-4.8) Monocytes # (Auto) 0.9 x10^3/uL (0.0-1.1) Eosinophils # (Auto) 0.0 x10^3/uL (0.0-0.7) Basophils # (Auto) 0.1 x10^3/uL (0.0-0.2) Sodium Level 145 mmol/L (136-145) Potassium Level 4.2 mmol/L (3.5-5.1) Chloride Level 105 mmol/L (98-107) Carbon Dioxide Level 30 mmol/L (21-32) Anion Gap 10 (6-14) Blood Urea Nitrogen 48 mg/dL (7-20) Creatinine 1.7 mg/dL (0.6-1.0) Estimated GFR (Cockcroft-Gault) 28.7 Glucose Level 126 mg/dL (70-99) Lactic Acid Level 1.3 mmol/L (0.4-2.0) Calcium Level 9.3 mg/dL (8.5-10.1) Total Bilirubin 0.8 mg/dL (0.2-1.0) Direct Bilirubin 0.4 mg/dL (0.0-0.2) Aspartate Amino Transf (AST/SGOT) 25 U/L (15-37) Alanine Aminotransferase (ALT/SGPT) 32 U/L (14-59) Alkaline Phosphatase 92 U/L (46-116) Troponin I Quantitative 0.037 ng/mL (0.000-0.055) CH-Ime-U-Type Natriuretic Peptide 2992 pg/mL (0-449) Total Protein 6.8 g/dL (6.4-8.2) Albumin 3.4 g/dL (3.4-5.0) Lipase 386 U/L (73-393) Urine Collection Type U cath Urine Color Yellow Urine Clarity Clear Urine pH 6.0 Urine Specific [place] 1.015 Urine Protein Negative mg/dL (NEG-TRACE) Urine Glucose (UA) Negative mg/dL (NEG) Urine Ketones (Stick) Negative mg/dL (NEG) Urine Blood Negative (NEG) Urine Nitrite Positive (NEG) Urine Bilirubin Negative (NEG) Urine Urobilinogen Dipstick 1.0 mg/dL (0.2 mg/dL) Urine Leukocyte Esterase Moderate (NEG) Urine RBC Occ /HPF (0-2) Urine WBC 20-40 /HPF (0-4) Urine Squamous Epithelial Cells Mod /LPF Urine Bacteria Many /HPF (0-FEW) Urine Hyaline Casts Few /HPF Urine Mucus Slight /LPF Assessment/Plan Assessment/Plan IMP CKD STAGE 3 WITH CR OF 1.1-1.4 AT BASELINE MILD KIRTI DEHYDRATION URINARY TRACT INFECTION MET ENCEPHALOPATHY LYMPHEDEMA PLAN CONT WITH IVF'S HOLD HER BUMEX AND LISINOPRIL ANTIBIOTICS LABS IN CASS SOSA MD Oct 27, 2016 12:13
[2016-10-27] MEDS: ALBUTEROL SULFATE 2.5 MG/3 ML NEBU. NEB SCH ×2 (12:44→20:33)
--- NOTE | 2016-10-27 14:35 | PDOC2 ---
NEUROLOGY CONSULT Date of Admission Date of Admission DATE: 10/27/16 TIME: 14:27 Reason for Consult Reason for Consult: Altered mental status, abnormal head CT Referring Physician Referring Physician: Dr. Barillas PCP: Dr. Martinez Source Source: Chart review, Patient History of Present Illness History of Present Illness The patient is an 81-year-old right-handed female who has had tremors for the past 3 weeks and has had some confusion the last few days. She has been found to have a urinary tract infection. I saw her 2 years ago for a cerebellar stroke from which she made a good recovery although she still gets around mainly with a walker. She did have an abnormal head CT as reviewed below. She is feeling better today. Past Medical History Cardiovascular: AFIB, CHF, HTN, Other (atypical chest pain, peripheral vascular disease) Pulmonary: Other (dyspnea) CENTRAL NERVOUS SYSTEM: CVA, Periperal neuropathy, Other (restless leg syndrome ) GI: Constipation, GERD, Peptic Ulcer disease Psych: Anxiety Musculoskeletal: Osteoarthritis ENT: Allergic Rhinitis Renal/: Chronic renal insuff, UTI, Other (nephrolithiasis) Dermatology: Cellulitis Past Surgical History Past Surgical History: Appendectomy, Cataract Removal, Total knee replacement ( left), Hysterectomy, Other (carotid endarterectomy, cheloid removal) Family History Family History: No pertinent hx Social History Social History Sr. of [place], no alcohol or tobacco Current Medications Current Medications Current Medications Ondansetron HCl (Zofran) 4 mg PRN Q8HRS PRN IV NAUSEA/VOMITING; Start 10/27/16 at 00:30; Stop 10/28/16 at 00:29 Levofloxacin/ Dextrose 100 ml @ 100 mls/hr 1X ONCE IV Last administered on 00:55; Start 10/27/16 at 01:00; Stop 10/27/16 at 01:59; Status DC Acetaminophen (Tylenol) 500 mg Q6HRS PO Last administered on 10/27/16 12:00; Start 10/27/16 at 12:00 Alprazolam (Xanax) 0.25 mg BID PO Last administered on 10/27/16 09:16; Start 10/27/16 at 09:00 Aspirin (Ecotrin) 81 mg DAILY PO Last administered on 10/27/16 09:17; Start at 09:00 Docusate Sodium (Colace) 100 mg DAILY PO Last administered on 10/27/16 09:16; Start 10/27/16 at 09:00 Famotidine (Pepcid) 20 mg DAILY PO Last administered on 10/27/16 09:16; Start 10/27/16 at 09:00 Fluticasone Propionate (Flonase) 1 spray DAILY NS Last administered on 09:19; Start 10/27/16 at 09:00 Guaifenesin (Robitussin) 100 mg PRN Q6HRS PRN PO COUGH; Start 10/27/16 at 08:00 Ipratropium Equality (Atrovent) 0.4 mg PRN QID PRN NEB shortness of breath; Start 10/27/16 at 08:00 Lisinopril (Prinivil) 5 mg HS PO ; Start 10/27/16 at 21:00; Stop 10/27/16 at 21: 00; Status DC Al Hydroxide/Mg Hydroxide (Mylanta Plus Xs) 355 ml PRN Q8HRS PRN PO STOMACH CRAMPING; Start 10/27/16 at 08:00 Metoprolol Succinate (Toprol Xl) 100 mg DAILY PO Last administered on 09:17; Start 10/27/16 at 09:00 Polyethylene Glycol (miraLAX PACKET) 17 gm QODAY PO Last administered on 09:15; Start 10/27/16 at 09:00 Polyethylene Glycol (miraLAX PACKET) 17 gm PRN DAILY PRN PO CONSTIPATION; Start 10/27/16 at 08:00 Senna/Docusate Sodium (Senna Plus) 1 tab QODAY PO Last administered on 09:16; Start 10/27/16 at 09:00 Sertraline HCl (Zoloft) 50 mg DAILY PO Last administered on 10/27/16 09:16; Start 10/27/16 at 09:00 Spironolactone (Aldactone) 25 mg DAILY PO Last administered on 10/27/16 09:16 ; Start 10/27/16 at 09:00 Triamcinolone Acetonide (Kenalog) 1 kali TID TP Last administered on 10/27/16 09:24; Start 10/27/16 at 09:00 Non-Formulary Medication 1 vial Q6HRS NEB ; Start 10/27/16 at 12:00; Stop at 12:00; Status DC Non-Formulary Medication 60 gm QSHIFT TP ; Start 10/27/16 at 08:00; Stop at 09:49; Status DC Bumetanide (Bumex) 2 mg BID PO Last administered on 10/27/16 09:16; Start 02/03 at 09:00; Stop 10/27/16 at 12:14; Status DC Clobetasol Propionate (Temovate) 1 kali BID TP Last administered on 10/27/16 09 :24; Start 10/27/16 at 09:00; Stop 10/27/16 at 13:47; Status DC Gabapentin (Neurontin) 300 mg BID92 PO Last administered on 10/27/16 13:56; Start 10/27/16 at 09:00 Gabapentin (Neurontin) 400 mg QHS PO ; Start 10/27/16 at 21:00 Miconazole Nitrate (Monistat-Derm) 1 kali DAILY PRN TP Rash; Start 10/27/16 at 09:00; Stop 10/27/16 at 09:48; Status DC Multi-Ingred Cream/Lotion/Oil/ Oint (Hydrocerin) 1 kali PRN BID PRN TP FOR DRY SKIN Last administered on 10/27/16 12:01; Start 10/27/16 at 09:45; Stop at 13:49; Status DC Ondansetron HCl (Zofran Odt) 8 mg PRN Q8HRS PRN PO NAUSEA/VOMITING; Start 10/27 at 08:30 Sodium Chloride 1,000 ml @ 100 mls/hr Q10H IV Last administered on 10/27/16 09:18; Start 10/27/16 at 08:15 Albuterol Sulfate (Ventolin Neb Soln) 2.5 mg Q6HRS NEB Last administered on 12:44; Start 10/27/16 at 12:00 Miconazole Nitrate (Monistat-Derm) 1 kali PRN DAILY PRN TP Rash; Start 10/27/16 at 10:00; Stop 10/27/16 at 13:48; Status DC Levofloxacin (Levaquin) 500 mg DAILY06 PO Last administered on 10/27/16t 12:00 ; Start 10/27/16 at 10:00 Clobetasol Propionate (Temovate) 1 kali BID TP ; Start 10/27/16 at 13:47 Miconazole Nitrate (Monistat-Derm) 1 kali PRN DAILY PRN TP Rash; Start 10/27/16 at 13:48 Multi-Ingred Cream/Lotion/Oil/ Oint (Hydrocerin) 1 kali PRN BID PRN TP FOR DRY SKIN; Start 10/27/16 at 13:49 Active Scripts Active Reported [lido:maalox:benadryl] PO PRN Q6HRS PRN Bumetanide 2 Mg Tablet 1 Tab PO BID Maalox Maximum Strength Susp (Mag Hydrox/Al Hydrox/Simeth) 355 Ml Oral.susp 355 Ml PO PRN PRN Clobetasol Propionate 15 Gm Cream..g. 1 Kali TP BID Ibuprofen 800 Mg Tablet 800 Mg PO PRN Q8HRS PRN Guaifenesin 100 Mg/5 Ml Liquid 100 Mg PO PRN Q6HRS PRN Spironolactone 25 Mg Tablet 25 Mg PO DAILY Lisinopril 5 Mg Tablet 5 Mg PO HS Polyethylene Glycol 3350 17 Gm Powd.pack 17 Gm PO QODAY Ipratropium Equality 0.2 Mg/1 Ml Solution 1 Vial NEB PRN QID PRN Triamcinolone Acetonide 0.1% Oint (Triamcinolone Acetonide) 15 Gm Oint...g. 1 Kali TP TID MIX WITH EUCERIN DIRECTED BY PHYSICIAN Gabapentin 300 Mg Capsule 300 Mg PO BID Zoloft (Sertraline Hcl) 50 Mg Tablet 50 Mg PO DAILY Absorbase Ointment (Mineral Oil/Petrolatum,White) 114 Gm Oint...g. 114 Gm TP PRN BID PRN Miconazole Nitrate 45 Gm Cream.appl 45 Gm TOP PRN DAILY Famotidine 20 Mg Tablet 20 Mg PO DAILY Albuterol Sulfate Conc Neb Soln (Albuterol Sulfate) 2.5 Mg/0.5 Ml Vial.neb 1 Vial NEB Q6HRS Senna-Docusate Sodium Tablet (Sennosides/Docusate Sodium) 1 Each Tablet 1 Each PO QODAY Zofran Odt (Ondansetron) 8 Mg Tab.rapdis 8 Mg PO PRN Q8HRS PRN Gabapentin 400 Mg Capsule 400 Mg PO HS Acetaminophen 500 Mg Tablet 500 Mg PO Q6HRS Docusate Sodium 100 Mg Capsule 1 Cap PO DAILY Lo-Dose Aspirin EC (Aspirin) 81 Mg Tablet.dr 81 Mg PO DAILY Venelex Ointment (Balsam [place] Oil) 60 Gm Oint...g. 60 Gm TP QSHIFT Estrace (Estradiol) 2 Mg Tablet 1 Ad PO JUNE,SEPTEMBER,DEC,MAR Xanax (Alprazolam) 0.25 Mg Tablet 1 Tab PO BID Metoprolol Succinate ( Xl ) (Metoprolol Succinate) 100 Mg Tab.er.24h 100 Mg PO DAILY Flonase (Fluticasone Propionate) 16 Gm [place].susp 1 Sprays NS DAILY Miralax (Polyethylene Glycol 3350) 17 Gm Powd.pack 17 Gm PO PRN DAILY PRN Potassium Chloride Packet (Potassium Chloride) 20 Meq Packet 40 Meq PO QID Allergies Allergies: Coded Allergies: Penicillins (Verified Allergy, Intermediate, 08/18/13) Sulfa (Sulfonamide Antibiotics) (Verified Allergy, Intermediate, 05/04/15) adhesive tape (Verified Allergy, Intermediate, 05/08/15) cefadroxil (Verified Allergy, Intermediate, 05/04/15) clopidogrel (Verified Allergy, Intermediate, 05/04/15) codeine (Verified Allergy, Intermediate, 05/04/15) morphine (Verified Allergy, Intermediate, 05/04/15) I S O L A T I O N *CONTACT* (Verified Allergy, Unknown, 05/07/15) mrsa + ROS Review of System Patient denies fevers, chills, weight loss, dyspnea, angina, abdominal pain, change in bowels, or dysuria. 14 point review of systems is negative. Physical Exam Physical Examination PHYSICAL EXAMINATION: Vital signs: see above. General appearance is normal and in no acute distress. HEENT: Normocephalic and nontraumatic. Eyes, nose, ears, and throat are unremarkable. Neck is supple. No lymphadenopathy. No bruits are heard over the carotid artery. No crepitus. NEUROLOGICAL EXAMINATION: Mental Status Examination: Alert. Oriented to time, place, and person. Answers questions and follows commends, but somewhat tangential. She wants to tell me the story of how many of her family members have gotten sick this month. Pupils are equal round and reactive to light and accommodation. Extraocular movements are intact. Visual field exam shows no defect on the direct confrontation. No motor or sensory deficits on the facial exam. Uvula in the midline and the soft palate elevated symmetrically. No deviation of the tongue to any direction. Gross hearing is normal. Shoulder shrug normal. Muscle tone is normal. Muscle strength is 5. Deep tendon reflexes are 0-1+ all around. Plantar reflex is with flexion response bilaterally. [id number] test performance is accurate. Mild postural tremor without any attributes of Parkinson's. Alternative movements are accurate. Gait not tested. Sensory exam shows stocking loss. No cerebellar signs are elicited. Vitals VITALS Vital Signs Date Time Temp Pulse Resp B/P (MAP) Pulse Ox O2 Delivery O2 Flow Rate FiO2 10/27/16 12:49 98 Nasal Cannula 2.0 10/27/16 10:44 98.0 119 16 117/79 (92) 98.0 Labs Labs Laboratory Tests Test 10/26/16 22:30 10/26/16 23:59 White Blood Count 9.5 x10^3/uL (4.0-11.0) Red Blood Count 4.18 x10^6/uL (3.50-5.40) Hemoglobin 13.9 g/dL (12.0-15.5) Hematocrit 42.0 % (36.0-47.0) Mean Corpuscular Volume 101 fL (79-100) Mean Corpuscular Hemoglobin 33 pg (25-35) Mean Corpuscular Hemoglobin Concent 33 g/dL (31-37) Red Cell Distribution Width 14.8 % (11.5-14.5) Platelet Count 224 x10^3/uL (140-400) Neutrophils (%) (Auto) 71 % (31-73) Lymphocytes (%) (Auto) 18 % (24-48) Monocytes (%) (Auto) 10 % (0-9) Eosinophils (%) (Auto) 1 % (0-3) Basophils (%) (Auto) 1 % (0-3) Neutrophils # (Auto) 6.7 x10^3uL (1.8-7.7) Lymphocytes # (Auto) 1.7 x10^3/uL (1.0-4.8) Monocytes # (Auto) 0.9 x10^3/uL (0.0-1.1) Eosinophils # (Auto) 0.0 x10^3/uL (0.0-0.7) Basophils # (Auto) 0.1 x10^3/uL (0.0-0.2) Sodium Level 145 mmol/L (136-145) Potassium Level 4.2 mmol/L (3.5-5.1) Chloride Level 105 mmol/L (98-107) Carbon Dioxide Level 30 mmol/L (21-32) Anion Gap 10 (6-14) Blood Urea Nitrogen 48 mg/dL (7-20) Creatinine 1.7 mg/dL (0.6-1.0) Estimated GFR (Cockcroft-Gault) 28.7 Glucose Level 126 mg/dL (70-99) Lactic Acid Level 1.3 mmol/L (0.4-2.0) Calcium Level 9.3 mg/dL (8.5-10.1) Total Bilirubin 0.8 mg/dL (0.2-1.0) Direct Bilirubin 0.4 mg/dL (0.0-0.2) Aspartate Amino Transf (AST/SGOT) 25 U/L (15-37) Alanine Aminotransferase (ALT/SGPT) 32 U/L (14-59) Alkaline Phosphatase 92 U/L (46-116) Troponin I Quantitative 0.037 ng/mL (0.000-0.055) ZG-Heq-I-Type Natriuretic Peptide 2992 pg/mL (0-449) Total Protein 6.8 g/dL (6.4-8.2) Albumin 3.4 g/dL (3.4-5.0) Lipase 386 U/L (73-393) Urine Collection Type U cath Urine Color Yellow Urine Clarity Clear Urine pH 6.0 Urine Specific [place] 1.015 Urine Protein Negative mg/dL (NEG-TRACE) Urine Glucose (UA) Negative mg/dL (NEG) Urine Ketones (Stick) Negative mg/dL (NEG) Urine Blood Negative (NEG) Urine Nitrite Positive (NEG) Urine Bilirubin Negative (NEG) Urine Urobilinogen Dipstick 1.0 mg/dL (0.2 mg/dL) Urine Leukocyte Esterase Moderate (NEG) Urine RBC Occ /HPF (0-2) Urine WBC 20-40 /HPF (0-4) Urine Squamous Epithelial Cells Mod /LPF Urine Bacteria Many /HPF (0-FEW) Urine Hyaline Casts Few /HPF Urine Mucus Slight /LPF Laboratory Tests Test 10/26/16 22:30 10/26/16 23:59 White Blood Count 9.5 x10^3/uL (4.0-11.0) Red Blood Count 4.18 x10^6/uL (3.50-5.40) Hemoglobin 13.9 g/dL (12.0-15.5) Hematocrit 42.0 % (36.0-47.0) Mean Corpuscular Volume 101 fL (79-100) Mean Corpuscular Hemoglobin 33 pg (25-35) Mean Corpuscular Hemoglobin Concent 33 g/dL (31-37) Red Cell Distribution Width 14.8 % (11.5-14.5) Platelet Count 224 x10^3/uL (140-400) Neutrophils (%) (Auto) 71 % (31-73) Lymphocytes (%) (Auto) 18 % (24-48) Monocytes (%) (Auto) 10 % (0-9) Eosinophils (%) (Auto) 1 % (0-3) Basophils (%) (Auto) 1 % (0-3) Neutrophils # (Auto) 6.7 x10^3uL (1.8-7.7) Lymphocytes # (Auto) 1.7 x10^3/uL (1.0-4.8) Monocytes # (Auto) 0.9 x10^3/uL (0.0-1.1) Eosinophils # (Auto) 0.0 x10^3/uL (0.0-0.7) Basophils # (Auto) 0.1 x10^3/uL (0.0-0.2) Sodium Level 145 mmol/L (136-145) Potassium Level 4.2 mmol/L (3.5-5.1) Chloride Level 105 mmol/L (98-107) Carbon Dioxide Level 30 mmol/L (21-32) Anion Gap 10 (6-14) Blood Urea Nitrogen 48 mg/dL (7-20) Creatinine 1.7 mg/dL (0.6-1.0) Estimated GFR (Cockcroft-Gault) 28.7 Glucose Level 126 mg/dL (70-99) Lactic Acid Level 1.3 mmol/L (0.4-2.0) Calcium Level 9.3 mg/dL (8.5-10.1) Total Bilirubin 0.8 mg/dL (0.2-1.0) Direct Bilirubin 0.4 mg/dL (0.0-0.2) Aspartate Amino Transf (AST/SGOT) 25 U/L (15-37) Alanine Aminotransferase (ALT/SGPT) 32 U/L (14-59) Alkaline Phosphatase 92 U/L (46-116) Troponin I Quantitative 0.037 ng/mL (0.000-0.055) YU-Dql-B-Type Natriuretic Peptide 2992 pg/mL (0-449) Total Protein 6.8 g/dL (6.4-8.2) Albumin 3.4 g/dL (3.4-5.0) Lipase 386 U/L (73-393) Urine Collection Type U cath Urine Color Yellow Urine Clarity Clear Urine pH 6.0 Urine Specific [place] 1.015 Urine Protein Negative mg/dL (NEG-TRACE) Urine Glucose (UA) Negative mg/dL (NEG) Urine Ketones (Stick) Negative mg/dL (NEG) Urine Blood Negative (NEG) Urine Nitrite Positive (NEG) Urine Bilirubin Negative (NEG) Urine Urobilinogen Dipstick 1.0 mg/dL (0.2 mg/dL) Urine Leukocyte Esterase Moderate (NEG) Urine RBC Occ /HPF (0-2) Urine WBC 20-40 /HPF (0-4) Urine Squamous Epithelial Cells Mod /LPF Urine Bacteria Many /HPF (0-FEW) Urine Hyaline Casts Few /HPF Urine Mucus Slight /LPF Images Images CT head: FINDINGS: No intracranial hemorrhage. No midline shift. Basal cisterns patents. Ventricles and sulci are globally prominent. No acute osseous abnormality. Orbits and paranasal sinuses unremarkable. Scattered foci of low attenuation within the white matter. IMPRESSION: 1. No acute intracranial hemorrhage. 2. Scattered regions of low attenuation within the white matter. Non-specific in nature but frequently secondary to chronic small vessel ischemic disease. 3. Prominence of ventricles and sulci which is frequently secondary to age related volume loss. 4. Repeat demonstration of low-attenuation the right side of the cerebellum which could be from patient's prior infarct. There has also been interval development of low-attenuation in the left side of the cerebellum which could be secondary to a region of gliosis or edema. Possible that this is related to the prior infarct but this region does appear new when compared to prior therefore could be subacute or chronic in nature. If further information is desired MRI can further evaluate Assessment/Plan Assessment/Plan Impression: Essential tremor Peripheral neuropathy History of right cerebellar stroke CT findings abnormal in the left cerebellum, now. Dementia, mild Metabolic encephalopathy probably due to urinary tract infection. Recommendations: MRI of the brain No treatment of essential tremor at this time. I offered reassurance to the patient. Avoid caffeine Further tests/treatments depending on the MRI result. Thank you for letting me help with the patient's care. MARILEE BUTLER MD Oct 27, 2016 14:35
--- NOTE | 2016-10-27 17:09 | RAD ---
MRI of the brain without contrast 10/27/2016 Clinical History: Confusion, lethargy and weakness. Technique: Unenhanced T1-weighted sagittal and axial, T2-weighted axial and coronal and FLAIR, gradient echo and diffusion-weighted axial images of the brain were obtained. Findings: Comparison is made to patient's CT scan of the head dated 10/26/2016. Additional comparison is made to the patient's previous MRI of the brain dated 05/07/2015. There is generalized parenchymal atrophy. Patchy, confluent and multiple focal areas of increased signal intensity are seen within the periventricular and subcortical white matter of both cerebral hemispheres on the FLAIR and T2-weighted images consistent with areas of mild small vessel ischemic disease. Areas of encephalomalacia are seen involving both cerebellar hemispheres. No acute parenchymal abnormality is seen. No extra-axial fluid collection is seen. There is no MRI evidence of acute ischemia/infarction. Mild mucosal thickening in seen scattered throughout the paranasal sinuses. There is a minimal right mastoid effusion. Normal flow voids are seen within the major vascular structures surrounding the brain parenchyma. Impression: No acute parenchymal abnormality is seen. Electronically signed by: Dano Motta MD (10/27/2016 5:05 PM) [id number]
[2016-10-27] MEDS: CLOBETASOL EMOLLIENT 0.05% TOPICAL CREAM 15GM TUBE. TP SCH (20:42)
[2016-10-27] MEDS ORDERED: LISINOPRIL 5 MG TABLET. PO SCH (21:00)
[2016-10-27] MEDS ORDERED: GABAPENTIN 400 MG CAPSULE. PO SCH (21:00)
[2016-10-28] MEDS: ALBUTEROL SULFATE 2.5 MG/3 ML NEBU. NEB SCH ×3 (01:09→12:35)
[2016-10-28] MEDS: ACETAMINOPHEN 500 MG TABLET PO SCH ×4 (03:32→12:09)
[2016-10-28] MEDS: IV NORMAL SALINE 1000ML BAG 1,000 ML IV SCH (03:36)
[2016-10-28 04:47] LABS: BASO % 0 % (0-3); EOS % 1 % (0-3); HEMATOCRIT 42.1 % (36.0-47.0); HEMOGLOBIN 13.7 g/dL (12.0-15.5); LYMPH # 1.4 x10^3/uL (1.0-4.8); LYMPH % 18 % (24-48); MEAN CORPUSCULAR HEMOGLOBIN 33 pg (25-35); MEAN CORPUSCULAR HGB CONC 33 g/dL (31-37); MEAN CORPUSCULAR VOLUME 102 fL (79-100); MONO % 9 % (0-9); NEUT % 72 % (31-73); PLATELET COUNT 197 x10^3/uL (140-400); RED BLOOD COUNT 4.11 x10^6/uL (3.50-5.40); RED CELL DISTRIBUTION WIDTH 14.5 % (11.5-14.5); WHITE BLOOD COUNT 7.6 x10^3/uL (4.0-11.0)
[2016-10-28 05:25] LABS: CALCIUM 9.3 mg/dL (8.5-10.1); CREATININE 1.5 mg/dL (0.6-1.0); GFR 33.2; POTASSIUM 3.9 mmol/L (3.5-5.1)
--- NOTE | 2016-10-28 05:38 | ACF ---
Admission Forms Criteria URINARY COMPLICATIONS Clinical Indications for Inpatient Care (Place 'X' for any and all applicable criteria): Ongoing inpatient care may be indicated for urinary complications with ANY ONE of the following: [X]I. Urinary tract infection requiring inpatient care as indicated by ANY ONE of the following(8)(19)(20): [ ]a) Severe symptoms (eg, high fever, severe pain) [ ]b) Vomiting or dehydration requiring ongoing inpatient care [X]c) IV antibiotic needs that cannot be managed at lower level of care [ ]d) Hemodynamic instability [ ]e) Obstruction of collecting system by stone or tumor [ ]II. Urinary retention requiring drainage or surgery (3)(4)(5)(17)(18) [ ]III. Renal failure (Use Renal Failure Criteria for further information.) [ ]IV. Oliguria(30) [ ]V. Post obstructive diuresis requiring close monitoring of urine output and intravenous compensation for excessive fluid losses(33) Extended stay beyond goal length of stay for primary condition may be needed until ALL of the following are present(3)(4)(5)(8): [ ]a) Renal function (creatinine) at baseline, or daily decreases in creatinine consistent with renal function return [ ]b) Voiding adequately or with urinary catheter or percutaneous suprapubic tube and management regimen in place that is performable at lower level of care. [ ]c) Urine output adequate [ ]d) Fever absent or resolving [ ]e) Infection absent or treatable at next level of care The original [employer] content created by [employer] has been revised. The portions of the content which have been revised are identified through the use of italic text or in bold, and [facility] has neither reviewed nor approved the modified material. All other unmodified content is copyright [facility] Please see references footnoted in the original [facility] edition 2016 Admission Criteria Met?: Yes JOSH LUNDBERG Oct 28, 2016 05:38
[2016-10-28 07:00] VITALS: BP 132/95
[2016-10-28 08:57] LABS: FOLATE 18.53 ng/ml (3.2-20.0)
[2016-10-28] MEDS: ALPRAZolam 0.25 MG TABLET PO SCH (09:00)
[2016-10-28] MEDS: TRIAMCINOLONE ACETONIDE 0.1% TOPICAL OINTMENT 15GM TUBE. TP SCH (09:00)
[2016-10-28] MEDS: FAMOTIDINE 20 MG TABLET. PO SCH (09:15)
[2016-10-28] MEDS: SPIRONOLACTONE 25 MG TABLET PO SCH (09:15)
[2016-10-28] MEDS: DOCUSATE SODIUM 100 MG CAPSULE. PO SCH (09:15)
[2016-10-28] MEDS: ASPIRIN ENTERIC COATED 81 MG TABLET.DR. PO SCH (09:15)
[2016-10-28] MEDS: GABAPENTIN 300 MG CAPSULE. PO SCH (09:15)
[2016-10-28] MEDS: METOPROLOL SUCC 24HR ER 100 MG TAB.ER.24H. PO SCH (09:15)
[2016-10-28] MEDS: SERTRALINE 50 MG TABLET. PO SCH (09:15)
[2016-10-28] MEDS: FLUTICASONE 50MCG/NASAL SPRAY 16GM BOTTLE. NS SCH (09:18)
[2016-10-28] MEDS: CLOBETASOL EMOLLIENT 0.05% TOPICAL CREAM 15GM TUBE. TP SCH (09:19)
--- NOTE | 2016-10-28 09:59 | PDOC ---
Infectious Disease Note Subjective Subjective Doing well. Has some tremors Legs best in a long time Urinating better ROS ROS GEN: Denies fevers, chills, sweats HEENT: Denies blurred vision, sore throat CV: Denies chest pain RESP: Denies shortness of air, cough GI: Denies n/v/d NEURO: Denies confusion, dizziness MSK: Denies weakness, joint pain/swelling Vital Sign Vital Signs Vital Signs Date Time Temp Pulse Resp B/P (MAP) Pulse Ox O2 Delivery O2 Flow Rate FiO2 10/28/16 07:30 Nasal Cannula 2.0 10/28/16 07:00 97.8 120 18 132/95 (107) 100 97.8 Physical Exam PHYSICAL EXAM GENERAL: NAD, Alert, coop. 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, oriented x 3, no focal neurologic deficit but struggles with word finding at times SKIN: No rash IV: ok Labs Lab Laboratory Tests Test 10/28/16 03:25 White Blood Count 7.6 x10^3/uL (4.0-11.0) Red Blood Count 4.11 x10^6/uL (3.50-5.40) Hemoglobin 13.7 g/dL (12.0-15.5) Hematocrit 42.1 % (36.0-47.0) Mean Corpuscular Volume 102 fL (79-100) Mean Corpuscular Hemoglobin 33 pg (25-35) Mean Corpuscular Hemoglobin Concent 33 g/dL (31-37) Red Cell Distribution Width 14.5 % (11.5-14.5) Platelet Count 197 x10^3/uL (140-400) Neutrophils (%) (Auto) 72 % (31-73) Lymphocytes (%) (Auto) 18 % (24-48) Monocytes (%) (Auto) 9 % (0-9) Eosinophils (%) (Auto) 1 % (0-3) Basophils (%) (Auto) 0 % (0-3) Neutrophils # (Auto) 5.5 x10^3uL (1.8-7.7) Lymphocytes # (Auto) 1.4 x10^3/uL (1.0-4.8) Monocytes # (Auto) 0.7 x10^3/uL (0.0-1.1) Eosinophils # (Auto) 0.1 x10^3/uL (0.0-0.7) Basophils # (Auto) 0.0 x10^3/uL (0.0-0.2) Sodium Level 147 mmol/L (136-145) Potassium Level 3.9 mmol/L (3.5-5.1) Chloride Level 107 mmol/L (98-107) Carbon Dioxide Level 32 mmol/L (21-32) Anion Gap 8 (6-14) Blood Urea Nitrogen 39 mg/dL (7-20) Creatinine 1.5 mg/dL (0.6-1.0) Estimated GFR (Cockcroft-Gault) 33.2 Glucose Level 109 mg/dL (70-99) Calcium Level 9.3 mg/dL (8.5-10.1) Vitamin B12 Level 641 pg/mL (247-911) Serum Folate 18.53 ng/ml (3.2-20.0) Objective Assessment UTI - POA PCN/Sulfa allergy ? reaction H/o CVA - ? new finding on CT head. MRI neg. Reviewed Dr. Mcguire's note KIRTI Chronic Lymphedema - better Plan Plan of Care Clinically improving Cont levofloxacin for 2 more doses lymphedema eval Ok to d/c home ERICKA WINN MD Oct 28, 2016 09:59
[2016-10-28 10:31] VITALS: BP 124/78
[2016-10-28] MEDS ORDERED: LEVO500T59 PO (10:59)
[2016-10-28] MEDS ORDERED: FOLIC/VIT B COMP W-C (RENAL) TABLET. PO SCH (11:00)
--- NOTE | 2016-10-28 11:33 | PDOC ---
Renal-Progress Notes Subjective Notes Notes NONE History of Present Illness Hx of present illness STABLE Vitals Vitals Vital Signs Date Time Temp Pulse Resp B/P (MAP) Pulse Ox O2 Delivery O2 Flow Rate FiO2 10/28/16 10:31 98.0 81 18 124/78 (93) 95 Nasal Cannula 2.0 98.0 Weight Weight [ ] I.O. Intake and Output Intake and Output 10/28/16 07:00 Intake Total 1390 ml Output Total 102 ml Balance 1288 ml Intake Oral 1390 ml Output Urine Total 100 ml Urine/Stool Mix 2 ml # Voids 5 Labs Labs Laboratory Tests Test 10/28/16 03:25 White Blood Count 7.6 x10^3/uL (4.0-11.0) Red Blood Count 4.11 x10^6/uL (3.50-5.40) Hemoglobin 13.7 g/dL (12.0-15.5) Hematocrit 42.1 % (36.0-47.0) Mean Corpuscular Volume 102 fL (79-100) Mean Corpuscular Hemoglobin 33 pg (25-35) Mean Corpuscular Hemoglobin Concent 33 g/dL (31-37) Red Cell Distribution Width 14.5 % (11.5-14.5) Platelet Count 197 x10^3/uL (140-400) Neutrophils (%) (Auto) 72 % (31-73) Lymphocytes (%) (Auto) 18 % (24-48) Monocytes (%) (Auto) 9 % (0-9) Eosinophils (%) (Auto) 1 % (0-3) Basophils (%) (Auto) 0 % (0-3) Neutrophils # (Auto) 5.5 x10^3uL (1.8-7.7) Lymphocytes # (Auto) 1.4 x10^3/uL (1.0-4.8) Monocytes # (Auto) 0.7 x10^3/uL (0.0-1.1) Eosinophils # (Auto) 0.1 x10^3/uL (0.0-0.7) Basophils # (Auto) 0.0 x10^3/uL (0.0-0.2) Sodium Level 147 mmol/L (136-145) Potassium Level 3.9 mmol/L (3.5-5.1) Chloride Level 107 mmol/L (98-107) Carbon Dioxide Level 32 mmol/L (21-32) Anion Gap 8 (6-14) Blood Urea Nitrogen 39 mg/dL (7-20) Creatinine 1.5 mg/dL (0.6-1.0) Estimated GFR (Cockcroft-Gault) 33.2 Glucose Level 109 mg/dL (70-99) Calcium Level 9.3 mg/dL (8.5-10.1) Vitamin B12 Level 641 pg/mL (247-911) Serum Folate 18.53 ng/ml (3.2-20.0) Review of Systems Constitutional: yes: no symptom reported Comments CONFUSED Physical Exam General Appearance: no apparent distress Skin: warm Respiratory: decreased breath sounds Heart: S1S2 Abdomen: soft, bowel sounds present Neurology: alert, confused Assessment Assessment IMP CKD STAGE 3 WITH CR OF ABOUT 1.1-1.4 KIRTI-BETTER WITH CR DOWN TO 1.5 DEHYDRATION UTI HYPERNATREMIA PLAN ANTIBIOTICS CHANGE IV TO HYPOTONIC SALINE LABS IN AM CASS GAITAN MD Oct 28, 2016 11:33
--- NOTE | 2016-10-28 11:49 | PDOC ---
PROGRESS NOTES Assessment Problems Medical Problems: (1) Acute kidney injury Status: Acute (2) Urinary tract infection Status: Acute Essential tremor, Better Peripheral neuropathy History of right cerebellar stroke No new stroke on MRI brain Dementia, mild Metabolic encephalopathy probably due to urinary tract infection. Plan No treatment of essential tremor at this time. I offered reassurance to the patient. Avoid caffeine No additional neurological studies required Subjective Feels better Objective Vital Signs Date Time Temp Pulse Resp B/P (MAP) Pulse Ox O2 Delivery O2 Flow Rate FiO2 10/28/16 10:31 98.0 81 18 124/78 (93) 95 Nasal Cannula 2.0 98.0 Intake and Output 10/28/16 07:00 Intake Total 1390 ml Output Total 102 ml Balance 1288 ml Intake Oral 1390 ml Output Urine Total 100 ml Urine/Stool Mix 2 ml # Voids 5 PHYSICAL EXAM Alert. Oriented to time, place and person. PERRL. EOMI. CN: no focal findings. Muscle tone: normal. Muscle strength: 5/5 DTR: 0-1+ Plantar reflex: flexor Gait: not examined in bed. Sensory exam: stocking loss. No cerebellar signs elicited. Review of Relevant I have reviewed the following items ted (where applicable) has been applied. Labs Laboratory Tests Test 10/26/16 22:30 10/26/16 23:59 10/27/16 01:40 10/28/16 03:25 White Blood Count 9.5 x10^3/uL (4.0-11.0) 7.6 x10^3/uL (4.0-11.0) Red Blood Count 4.18 x10^6/uL (3.50-5.40) 4.11 x10^6/uL (3.50-5.40) Hemoglobin 13.9 g/dL (12.0-15.5) 13.7 g/dL (12.0-15.5) Hematocrit 42.0 % (36.0-47.0) 42.1 % (36.0-47.0) Mean Corpuscular Volume 101 fL (79-100) 102 fL (79-100) Mean Corpuscular Hemoglobin 33 pg (25-35) 33 pg (25-35) Mean Corpuscular Hemoglobin Concent 33 g/dL (31-37) 33 g/dL (31-37) Red Cell Distribution Width 14.8 % (11.5-14.5) 14.5 % (11.5-14.5) Platelet Count 224 x10^3/uL (140-400) 197 x10^3/uL (140-400) Neutrophils (%) (Auto) 71 % (31-73) 72 % (31-73) Lymphocytes (%) (Auto) 18 % (24-48) 18 % (24-48) Monocytes (%) (Auto) 10 % (0-9) 9 % (0-9) Eosinophils (%) (Auto) 1 % (0-3) 1 % (0-3) Basophils (%) (Auto) 1 % (0-3) 0 % (0-3) Neutrophils # (Auto) 6.7 x10^3uL (1.8-7.7) 5.5 x10^3uL (1.8-7.7) Lymphocytes # (Auto) 1.7 x10^3/uL (1.0-4.8) 1.4 x10^3/uL (1.0-4.8) Monocytes # (Auto) 0.9 x10^3/uL (0.0-1.1) 0.7 x10^3/uL (0.0-1.1) Eosinophils # (Auto) 0.0 x10^3/uL (0.0-0.7) 0.1 x10^3/uL (0.0-0.7) Basophils # (Auto) 0.1 x10^3/uL (0.0-0.2) 0.0 x10^3/uL (0.0-0.2) Sodium Level 145 mmol/L (136-145) 147 mmol/L (136-145) Potassium Level 4.2 mmol/L (3.5-5.1) 3.9 mmol/L (3.5-5.1) Chloride Level 105 mmol/L (98-107) 107 mmol/L (98-107) Carbon Dioxide Level 30 mmol/L (21-32) 32 mmol/L (21-32) Anion Gap 10 (6-14) 8 (6-14) Blood Urea Nitrogen 48 mg/dL (7-20) 39 mg/dL (7-20) Creatinine 1.7 mg/dL (0.6-1.0) 1.5 mg/dL (0.6-1.0) Estimated GFR (Cockcroft-Gault) 28.7 33.2 Glucose Level 126 mg/dL (70-99) 109 mg/dL (70-99) Lactic Acid Level 1.3 mmol/L (0.4-2.0) Calcium Level 9.3 mg/dL (8.5-10.1) 9.3 mg/dL (8.5-10.1) Total Bilirubin 0.8 mg/dL (0.2-1.0) Direct Bilirubin 0.4 mg/dL (0.0-0.2) Aspartate Amino Transf (AST/SGOT) 25 U/L (15-37) Alanine Aminotransferase (ALT/SGPT) 32 U/L (14-59) Alkaline Phosphatase 92 U/L (46-116) Troponin I Quantitative 0.037 ng/mL (0.000-0.055) ZV-Cgl-H-Type Natriuretic Peptide 2992 pg/mL (0-449) Total Protein 6.8 g/dL (6.4-8.2) Albumin 3.4 g/dL (3.4-5.0) Lipase 386 U/L (73-393) Urine Collection Type U cath Urine Color Yellow Urine Clarity Clear Urine pH 6.0 Urine Specific [place] 1.015 Urine Protein Negative mg/dL (NEG-TRACE) Urine Glucose (UA) Negative mg/dL (NEG) Urine Ketones (Stick) Negative mg/dL (NEG) Urine Blood Negative (NEG) Urine Nitrite Positive (NEG) Urine Bilirubin Negative (NEG) Urine Urobilinogen Dipstick 1.0 mg/dL (0.2 mg/dL) Urine Leukocyte Esterase Moderate (NEG) Urine RBC Occ /HPF (0-2) Urine WBC 20-40 /HPF (0-4) Urine Squamous Epithelial Cells Mod /LPF Urine Bacteria Many /HPF (0-FEW) Urine Hyaline Casts Few /HPF Urine Mucus Slight /LPF Nasal Screen MRSA (PCR) Negative (Negative) Vitamin B12 Level 641 pg/mL (247-911) Serum Folate 18.53 ng/ml (3.2-20.0) Laboratory Tests Test 10/28/16 03:25 White Blood Count 7.6 x10^3/uL (4.0-11.0) Red Blood Count 4.11 x10^6/uL (3.50-5.40) Hemoglobin 13.7 g/dL (12.0-15.5) Hematocrit 42.1 % (36.0-47.0) Mean Corpuscular Volume 102 fL (79-100) Mean Corpuscular Hemoglobin 33 pg (25-35) Mean Corpuscular Hemoglobin Concent 33 g/dL (31-37) Red Cell Distribution Width 14.5 % (11.5-14.5) Platelet Count 197 x10^3/uL (140-400) Neutrophils (%) (Auto) 72 % (31-73) Lymphocytes (%) (Auto) 18 % (24-48) Monocytes (%) (Auto) 9 % (0-9) Eosinophils (%) (Auto) 1 % (0-3) Basophils (%) (Auto) 0 % (0-3) Neutrophils # (Auto) 5.5 x10^3uL (1.8-7.7) Lymphocytes # (Auto) 1.4 x10^3/uL (1.0-4.8) Monocytes # (Auto) 0.7 x10^3/uL (0.0-1.1) Eosinophils # (Auto) 0.1 x10^3/uL (0.0-0.7) Basophils # (Auto) 0.0 x10^3/uL (0.0-0.2) Sodium Level 147 mmol/L (136-145) Potassium Level 3.9 mmol/L (3.5-5.1) Chloride Level 107 mmol/L (98-107) Carbon Dioxide Level 32 mmol/L (21-32) Anion Gap 8 (6-14) Blood Urea Nitrogen 39 mg/dL (7-20) Creatinine 1.5 mg/dL (0.6-1.0) Estimated GFR (Cockcroft-Gault) 33.2 Glucose Level 109 mg/dL (70-99) Calcium Level 9.3 mg/dL (8.5-10.1) Vitamin B12 Level 641 pg/mL (247-911) Serum Folate 18.53 ng/ml (3.2-20.0) Medications Current Medications Ondansetron HCl (Zofran) 4 mg PRN Q8HRS PRN IV NAUSEA/VOMITING; Start 10/27/16 at 00:30; Stop 10/28/16 at 00:29; Status DC Levofloxacin/ Dextrose 100 ml @ 100 mls/hr 1X ONCE IV Last administered on 00:55; Start 10/27/16 at 01:00; Stop 10/27/16 at 01:59; Status DC Acetaminophen (Tylenol) 500 mg Q6HRS PO Last administered on 10/28/16 06:25; Start 10/27/16 at 12:00 Alprazolam (Xanax) 0.25 mg BID PO Last administered on 10/28/16 09:00; Start 10/27/16 at 09:00 Aspirin (Ecotrin) 81 mg DAILY PO Last administered on 10/28/16 09:15; Start at 09:00 Docusate Sodium (Colace) 100 mg DAILY PO Last administered on 10/28/16 09:15; Start 10/27/16 at 09:00 Famotidine (Pepcid) 20 mg DAILY PO Last administered on 10/28/16 09:15; Start 10/27/16 at 09:00 Fluticasone Propionate (Flonase) 1 spray DAILY NS Last administered on 09:18; Start 10/27/16 at 09:00 Guaifenesin (Robitussin) 100 mg PRN Q6HRS PRN PO COUGH; Start 10/27/16 at 08:00 Ipratropium [place] (Atrovent) 0.4 mg PRN QID PRN NEB shortness of breath; Start 10/27/16 at 08:00 Lisinopril (Prinivil) 5 mg HS PO ; Start 10/27/16 at 21:00; Stop 10/27/16 at 21: 00; Status DC Al Hydroxide/Mg Hydroxide (Mylanta Plus Xs) 355 ml PRN Q8HRS PRN PO STOMACH CRAMPING; Start 10/27/16 at 08:00 Metoprolol Succinate (Toprol Xl) 100 mg DAILY PO Last administered on 09:15; Start 10/27/16 at 09:00 Polyethylene Glycol (miraLAX PACKET) 17 gm QODAY PO Last administered on 09:15; Start 10/27/16 at 09:00 Polyethylene Glycol (miraLAX PACKET) 17 gm PRN DAILY PRN PO CONSTIPATION; Start 10/27/16 at 08:00 Senna/Docusate Sodium (Senna Plus) 1 tab QODAY PO Last administered on 09:16; Start 10/27/16 at 09:00 Sertraline HCl (Zoloft) 50 mg DAILY PO Last administered on 10/28/16 09:15; Start 10/27/16 at 09:00 Spironolactone (Aldactone) 25 mg DAILY PO Last administered on 10/28/16 09:15 ; Start 10/27/16 at 09:00 Triamcinolone Acetonide (Kenalog) 1 kali TID TP Last administered on 10/27/16 20:42; Start 10/27/16 at 09:00 Non-Formulary Medication 1 vial Q6HRS NEB ; Start 10/27/16 at 12:00; Stop at 12:00; Status DC Non-Formulary Medication 60 gm QSHIFT TP ; Start 10/27/16 at 08:00; Stop at 09:49; Status DC Bumetanide (Bumex) 2 mg BID PO Last administered on 10/27/16 09:16; Start 02/03 at 09:00; Stop 10/27/16 at 12:14; Status DC Clobetasol Propionate (Temovate) 1 kali BID TP Last administered on 10/27/16 09 :24; Start 10/27/16 at 09:00; Stop 10/27/16 at 13:47; Status DC Gabapentin (Neurontin) 300 mg BID92 PO Last administered on 10/28/16 09:15; Start 10/27/16 at 09:00 Gabapentin (Neurontin) 400 mg QHS PO Last administered on 10/27/16 20:42; Start 10/27/16 at 21:00 Miconazole Nitrate (Monistat-Derm) 1 kali DAILY PRN TP Rash; Start 10/27/16 at 09:00; Stop 10/27/16 at 09:48; Status DC Multi-Ingred Cream/Lotion/Oil/ Oint (Hydrocerin) 1 kali PRN BID PRN TP FOR DRY SKIN Last administered on 7/10/17at 12:01; Start 10/27/16 at 09:45; Stop at 13:49; Status DC Ondansetron HCl (Zofran Odt) 8 mg PRN Q8HRS PRN PO NAUSEA/VOMITING; Start 10/27 at 08:30 Sodium Chloride 1,000 ml @ 100 mls/hr Q10H IV Last administered on 10/28/16 03:36; Start 10/27/16 at 08:15; Stop 10/28/16 at 11:34; Status DC Albuterol Sulfate (Ventolin Neb Soln) 2.5 mg Q6HRS NEB Last administered on 07:26; Start 10/27/16 at 12:00 Miconazole Nitrate (Monistat-Derm) 1 kali PRN DAILY PRN TP Rash; Start 10/27/16 at 10:00; Stop 10/27/16 at 13:48; Status DC Levofloxacin (Levaquin) 500 mg DAILY06 PO Last administered on 10/28/16 06:25 ; Start 10/27/16 at 10:00 Clobetasol Propionate (Temovate) 1 kali BID TP Last administered on 10/28/16 09 :19; Start 10/27/16 at 13:47 Miconazole Nitrate (Monistat-Derm) 1 kali PRN DAILY PRN TP Rash; Start 10/27/16 at 13:48 Multi-Ingred Cream/Lotion/Oil/ Oint (Hydrocerin) 1 kali PRN BID PRN TP FOR DRY SKIN Last administered on 10/27/16 20:43; Start 10/27/16 at 13:49 Vitamin B Complex/ Vitamin C ([place]-Pedro) 1 tab DAILY PO ; Start 10/28/16 at 11: 00 Sodium Chloride 1,000 ml @ 75 mls/hr [id number] IV ; Start 10/28/16 at 12:00 Active Scripts Active Levaquin (Levofloxacin) 500 Mg Tablet 500 Mg PO DAILY06 Reported [lido:maalox:benadryl] PO PRN Q6HRS PRN Bumetanide 2 Mg Tablet 1 Tab PO BID Maalox Maximum Strength Susp (Mag Hydrox/Al Hydrox/Simeth) 355 Ml Oral.susp 355 Ml PO PRN PRN Clobetasol Propionate 15 Gm Cream..g. 1 Kali TP BID Ibuprofen 800 Mg Tablet 800 Mg PO PRN Q8HRS PRN Guaifenesin 100 Mg/5 Ml Liquid 100 Mg PO PRN Q6HRS PRN Spironolactone 25 Mg Tablet 25 Mg PO DAILY Lisinopril 5 Mg Tablet 5 Mg PO HS Polyethylene Glycol 3350 17 Gm Powd.pack 17 Gm PO QODAY Ipratropium [place] 0.2 Mg/1 Ml Solution 1 Vial NEB PRN QID PRN Triamcinolone Acetonide 0.1% Oint (Triamcinolone Acetonide) 15 Gm Oint...g. 1 Kali TP TID MIX WITH EUCERIN DIRECTED BY PHYSICIAN Gabapentin 300 Mg Capsule 300 Mg PO BID Zoloft (Sertraline Hcl) 50 Mg Tablet 50 Mg PO DAILY Absorbase Ointment (Mineral Oil/Petrolatum,White) 114 Gm Oint...g. 114 Gm TP PRN BID PRN Miconazole Nitrate 45 Gm Cream.appl 45 Gm TOP PRN DAILY Famotidine 20 Mg Tablet 20 Mg PO DAILY Albuterol Sulfate Conc Neb Soln (Albuterol Sulfate) 2.5 Mg/0.5 Ml Vial.neb 1 Vial NEB Q6HRS Senna-Docusate Sodium Tablet (Sennosides/Docusate Sodium) 1 Each Tablet 1 Each PO QODAY Zofran Odt (Ondansetron) 8 Mg Tab.rapdis 8 Mg PO PRN Q8HRS PRN Gabapentin 400 Mg Capsule 400 Mg PO HS Acetaminophen 500 Mg Tablet 500 Mg PO Q6HRS Docusate Sodium 100 Mg Capsule 1 Cap PO DAILY Lo-Dose Aspirin EC (Aspirin) 81 Mg Tablet. 81 Mg PO DAILY Venelex Ointment (Balsam [place] Oil) 60 Gm Oint...g. 60 Gm TP QSHIFT Estrace (Estradiol) 2 Mg Tablet 1 Ad PO JUNE,SEPTEMBER,DEC,DEC Xanax (Alprazolam) 0.25 Mg Tablet 1 Tab PO BID Metoprolol Succinate ( Xl ) (Metoprolol Succinate) 100 Mg Tab.er.24h 100 Mg PO DAILY Flonase (Fluticasone Propionate) 16 Gm [place].susp 1 Sprays NS DAILY Miralax (Polyethylene Glycol 3350) 17 Gm Powd.pack 17 Gm PO PRN DAILY PRN Potassium Chloride Packet (Potassium Chloride) 20 Meq Packet 40 Meq PO QID Vitals/I & O Vital Sign - Last 24 Hours 10/27/16 10/27/16 10/27/16 10/27/16 12:49 14:54 19:00 20:00 Temp 98.2 97.6 98.2 97.6 Pulse 83 69 Resp 18 18 B/P (MAP) 108/69 (82) 102/57 (72) Pulse Ox 98 94 94 O2 Delivery Nasal Cannula Nasal Cannula Room Air Nasal Cannula O2 Flow Rate 2.0 2.0 2.0 2.0 10/27/16 10/27/16 10/28/16 10/28/16 20:34 23:00 01:14 07:00 Temp 98.1 97.8 98.1 97.8 Pulse 70 120 Resp 18 18 B/P (MAP) 103/70 (81) 132/95 (107) Pulse Ox 94 96 100 O2 Delivery Nasal Cannula Room Air Nasal Cannula Nasal Cannula O2 Flow Rate 2.0 2.0 2.0 2.0 10/28/16 10/28/16 10/28/16 10/28/16 07:30 07:50 09:15 10:31 Temp 98.0 98.0 Pulse 120 81 Resp 18 B/P (MAP) 132/95 124/78 (93) Pulse Ox 95 O2 Delivery Nasal Cannula Nasal Cannula Nasal Cannula O2 Flow Rate 2.0 2.0 2.0 Intake and Output 10/27/16 10/27/16 10/28/16 15:00 23:00 07:00 Intake Total 730 ml 660 ml 0 ml Output Total 2 ml 100 ml Balance 728 ml 660 ml -100 ml Images Brain MRI: Findings: Comparison is made to patient's CT scan of the head dated 10/26/2016. Additional comparison is made to the patient's previous MRI of the brain dated 05/07/2015. There is generalized parenchymal atrophy. Patchy, confluent and multiple focal areas of increased signal intensity are seen within the periventricular and subcortical white matter of both cerebral hemispheres on the FLAIR and T2-weighted images consistent with areas of mild small vessel ischemic disease. Areas of encephalomalacia are seen involving both cerebellar hemispheres. No acute parenchymal abnormality is seen. No extra-axial fluid collection is seen. There is no MRI evidence of acute ischemia/infarction. Mild mucosal thickening in seen scattered throughout the paranasal sinuses. There is a minimal right mastoid effusion. Normal flow voids are seen within the major vascular structures surrounding the brain parenchyma. Impression: No acute parenchymal abnormality is seen. MARILEE BUTLER MD Oct 28, 2016 11:49
[2016-10-28] MEDS ORDERED: IV 1/2 NORMAL SALINE 1,000 ML IV SCH (12:00)
== END 2016-10-28 13:08 | disposition home or self-care (01) | DRG 682 ==
LOC: ER 21:35 → 5 NORTH 10-27 00:29
PROVIDERS: ADMIT Internal Medicine; ATTEND Internal Medicine
DX: N17.0 Acute kidney failure with tubular necrosis (principal); G93.41 Metabolic encephalopathy; N39.0 Urinary tract infection, site not specified; Z68.41 Body mass index [BMI] 40.0-44.9, adult; I50.32 Chronic diastolic (congestive) heart failure; J96.11 Chronic respiratory failure with hypoxia; E87.0 Hyperosmolality and hypernatremia; I13.0 Hypertensive heart and chronic kidney disease with heart failure and stage 1 through stage 4 chronic kidney disease, or unspecified chronic kidney disease; E78.5 Hyperlipidemia, unspecified; E66.01 Morbid (severe) obesity due to excess calories; E11.22 Type 2 diabetes mellitus with diabetic chronic kidney disease; F03.90 Unspecified dementia, unspecified severity, without behavioral disturbance, psychotic disturbance, mood disturbance, and anxiety; E11.42 Type 2 diabetes mellitus with diabetic polyneuropathy; I25.10 Atherosclerotic heart disease of native coronary artery without angina pectoris; I48.91 Unspecified atrial fibrillation; E11.51 Type 2 diabetes mellitus with diabetic peripheral angiopathy without gangrene; G25.81 Restless legs syndrome; N18.3 Chronic kidney disease, stage 3 (moderate); Z96.652 Presence of left artificial knee joint; I89.0 Lymphedema, not elsewhere classified; G25.0 Essential tremor; E86.0 Dehydration; F41.9 Anxiety disorder, unspecified; J30.9 Allergic rhinitis, unspecified; K59.00 Constipation, unspecified; M19.90 Unspecified osteoarthritis, unspecified site; K21.9 Gastro-esophageal reflux disease without esophagitis; Z95.5 Presence of coronary angioplasty implant and graft; Z88.5 Allergy status to narcotic agent; Z88.0 Allergy status to penicillin; Z88.2 Allergy status to sulfonamides; Z88.8 Allergy status to other drugs, medicaments and biological substances; Z90.49 Acquired absence of other specified parts of digestive tract; Z90.710 Acquired absence of both cervix and uterus; Z86.73 Personal history of transient ischemic attack (TIA), and cerebral infarction without residual deficits; Z87.442 Personal history of urinary calculi; Z87.11 Personal history of peptic ulcer disease; Z82.49 Family history of ischemic heart disease and other diseases of the circulatory system; Z82.3 Family history of stroke
CPT/HCPCS: 36415; 70450; 70551; 71010; 80048; 80076; 81001; 82607; 82746; 83605; 83690; 83880; 84484; 85027; 87086; 87641; 93005; 94250; 94640; 96365; A6539; J1956; J7030; 99285-25